=== PATIENT | female | born 1975 | race Caucasian/White ===

== ENCOUNTER 2017-02-11 12:00 | Inpatient (IN) | payer BC ==
[2017-02-11] MEDS ORDERED: SODIUM CHLORIDE 1,000 ML IV STA (12:38)
[2017-02-11] MEDS ORDERED: ACETAMINOPHEN 1000 MG/100 ML VIAL (NON FORMULARY) IVPB ONE (12:39)
[2017-02-11] MEDS ORDERED: ONDANSETRON 4 MG/2 ML VIAL IVPUSH ONE (13:09)
[2017-02-11] MEDS ORDERED: ONDANSETRON 4 MG/2 ML VIAL ONE (13:11)
--- NOTE | 2017-02-11 13:14 | PDOC ---
History of Present Illness <Leatha Hinojosa - Last Filed: 02/11/17 14:17> - General History Source: Patient Exam Limitations: No Limitations - History of Present Illness Travel History: No Initial Comments: 02/11/17 13:05 41-year-old female presents the ED with complaints of fever, chills, flank pain , and weakness with nausea for the past 3 days worsening in severity. Patient states was recently treated with Bactrim secondary to UTI by Dr. Jordan Gonzalez although she is followed by Dr. Cerrato for urology due to recurrent kidney infection and kidney stones. Patient denies chest pain, shortness of breath, abdominal distention, diarrhea, or rash. Timing/Duration: reports: getting worse Quality: reports: moderate, sharpness Abdominal Pain Onset Location: reports: flank (left) Pain Radiation: reports: LLQ, back Activities at Onset: reports: none Aggravating Factors: improves with: None Alleviating Factors: improves with: None <Rosaura Lester - Last Filed: 02/11/17 18:30> - General Chief Complaint: Pain, Acute Stated Complaint: PAIN Time Seen by Provider: 02/11/17 12:37 Past History <Leatha Hinojosa - Last Filed: 02/11/17 14:17> - Travel Traveled outside of the country in the last 30 days: No Close contact w/someone who was outside of country & ill: No - Past Medical History Cardiac Disorders: Yes (MVP) Diabetes: No (HYPOGLYCEMIA) GI Disorders: Yes (Colitis) Disorders: Yes (kidney stones multiple times.) Kidney Stones: Yes Suicide Attempt (Hx): No Thyroid Disease: (hypo) - Surgical History Abdominal Surgery: Yes (oopharectomy,kidney stones lipthotripsy) Appendectomy: Yes - Reproductive History Polycystic Ovaries: Yes Therapeutic (s) & number: No - Psycho/Social/Smoking Cessation Hx Anxiety: No Suicidal Ideation: No Smoking Status: Yes Smoking History: Former smoker Have you smoked in the past 12 months: Yes Number of Cigarettes Smoked Daily: 20 Information on smoking cessation initiated: Yes 'Breaking Loose' booklet given: 09/15/13 Hx Alcohol Use: No Drug/Substance Use Hx: No Substance Use Type: None Hx Substance Use Treatment: Yes Patient Lives Alone: No Lives with/in: spouse/SO <Rosaura Lester - Last Filed: 02/11/17 18:30> - Past Medical History Allergies/Adverse Reactions: Allergies Allergy/AdvReac Type Severity Reaction Status Date / Time levofloxacin [From Levaquin] Allergy Severe Hives Verified 02/11/17 12:18 ceftriaxone sodium Allergy Intermediate Difficulty Verified 02/11/17 12:18 [From Rocephin] Breathing ciprofloxacin [From Cipro] Allergy Difficulty Verified 02/11/17 12:18 Breathing ciprofloxacin HCl Allergy Difficulty Verified 02/11/17 12:18 [From Cipro] Breathing Penicillins Allergy Difficulty Verified 02/11/17 12:18 Breathing nitrofurantoin AdvReac Severe Hives Verified 02/11/17 12:18 [From Macrobid] nitrofurantoin AdvReac Severe Hives Verified 02/11/17 12:18 macrocrystalline [From Macrobid] Home Medications: Ambulatory Orders NK [No Known Home Medication] 02/11/17 Review of Systems - Review of Systems Able to Perform ROS?: No Is the patient limited Indonesian proficient: No Constitutional: Yes: Fever, Weakness HEENTM: No: Symptoms Reported Respiratory: No: Symptoms reported Cardiac (ROS): No: Symptoms Reported ABD/GI: Yes: Nausea : Yes: Flank Pain, Hematuria ( 2 weeks) Hematologic/Lymphatic: No: Symptoms Reported <Rosaura Lester - Last Filed: 02/11/17 18:30> *Physical Exam - Vital Signs Last Vital Signs Temp Pulse Resp BP Pulse Ox 99.8 F H 92 H 20 108/82 96 02/11/17 12:19 02/11/17 12:19 02/11/17 12:19 02/11/17 12:19 02/11/17 12:19 <Leatha Hinojosa - Last Filed: 02/11/17 14:17> - Vital Signs Last Vital Signs Temp Pulse Resp BP Pulse Ox 99.8 F H 92 H 20 108/82 96 02/11/17 12:19 02/11/17 12:19 02/11/17 12:19 02/11/17 12:19 02/11/17 12:19 - Physical Exam General Appearance: Yes: Nourished, Appropriately Dressed. No: Apparent Distress HEENT: positive: EOMI, ADORE, Pharynx Normal. negative: Pale Conjunctivae Neck: positive: Supple Respiratory/Chest: positive: Lungs Clear, Normal Breath Sounds. negative: Respiratory Distress, Accessory Muscle Use Cardiovascular: positive: Regular Rhythm, Regular Rate. negative: Murmur Gastrointestinal/Abdominal: positive: Soft, Tenderness (left flank /left lower quadrant) Musculoskeletal: positive: CVA Tenderness (L) Extremity: positive: Normal Capillary Refill Integumentary: positive: Normal Color, Warm, Moist Neurologic: positive: Motor Strength 5/5 (ambulatory) <Rosaura Lester - Last Filed: 02/11/17 18:30> Procedures - Bedside Ultrasound Other: renal us, see mdm for report <Leatha Hinojosa - Last Filed: 02/11/17 14:17> ED Treatment Course - LABORATORY CBC & Chemistry Diagram: 02/11/17 12:41 02/11/17 12:41 - ADDITIONAL ORDERS Additional order review: Laboratory Results 02/11/17 02/11/17 02/11/17 13:30 12:41 12:41 Sodium 141 Potassium 4.6 Chloride 106 Carbon Dioxide 27 Anion Gap 8 BUN 6 L Creatinine 0.6 Creat Clearance w eGFR > 60 Random Glucose 91 Lactic Acid 1.0 Calcium 8.6 Total Bilirubin 0.7 D AST 13 L ALT 12 D Alkaline Phosphatase 53 Total Protein 6.4 Albumin 3.7 Urine Color Yellow Urine Appearance Slcloudy Urine pH 6.0 Urine Protein Negative Urine Glucose (UA) Negative Urine Ketones Negative Urine Blood 2+ H Urine Nitrite Positive Urine Bilirubin Negative Urine Urobilinogen Negative Ur Leukocyte Esterase Negative Urine RBC 2 Urine WBC 4 Ur Epithelial Cells Few Urine Bacteria Many Urine Mucus Rare 02/11/17 12:41 RBC 4.01 MCV 94.0 MCHC 33.4 RDW 12.6 MPV 8.3 Neutrophils % 84.7 H Lymphocytes % 8.9 D Monocytes % 4.9 Eosinophils % 1.2 Basophils % 0.3 - Medications Given in the ED: ED Medications Discontinued Medications Generic Name Dose Route Start Last Admin Trade Name Daljitq PRN Reason Stop Dose Admin Acetaminophen 1,000 mg 02/11/17 12:39 02/11/17 13:35 Ofirmev Injection - IVPB 02/11/17 12:40 1,000 mg ONCE ONE Administration Sodium Chloride 1,000 mls @ 1,000 mls/hr 02/11/17 12:38 02/11/17 13:12 Normal Saline - IV 02/11/17 13:37 1,000 mls/hr ASDIR STA Administration Ondansetron HCl 4 mg 02/11/17 13:09 02/11/17 13:12 Zofran Injection IVPUSH 02/11/17 13:10 4 mg ONCE ONE Administration <Leatha Hinojosa - Last Filed: 02/11/17 14:17> - LABORATORY CBC & Chemistry Diagram: 02/11/17 12:41 02/11/17 12:41 - RADIOLOGY Radiology Studies Ordered: Category Date Time Status KIDNEY / RENAL US [US] Stat Ultrasound 02/11/17 12:39 Ordered <Rosaura Lester - Last Filed: 02/11/17 18:30> Medical Decision Making - Medical Decision Making 02/11/17 14:17 focused ED ultrasound renal, indication left flank pain r/o hydronephrosis bilateral kidneys scanned in two planes. right kidney measured 9.6 x 4.2 cm, no hydronephrosis left kidney measured 10.9 x 6cm, no hydronephrosis bladder volume 280 ml. impression: normal renal ultrasound cirilli <Leatha Hinojosa - Last Filed: 02/11/17 14:17> - Medical Decision Making 02/11/17 13:16 Patient here with complaints of fever, weakness, flank pain recent kidney infection, and nausea. Patient with recurrent kidney infection along with renal colic followed by Dr. Cerrato. Patient on exam had left CVA tenderness left flank pain and mild left lower quadrant pain. Patient ordered for septic workup Zofran, IV Tylenol, and renal kidney ultrasound. 02/11/17 17:21 Laboratory Tests 02/11/17 02/11/17 02/11/17 12:41 12:41 12:41 WBC 15.4 H D Hgb 12.6 Hct 37.7 Sodium 141 Potassium 4.6 Chloride 106 Carbon Dioxide 27 Anion Gap 8 BUN 6 L Creatinine 0.6 Creat Clearance w eGFR > 60 Random Glucose 91 Lactic Acid 1.0 AST 13 L ALT 12 D Urine Blood Urine Nitrite Ur Leukocyte Esterase Urine WBC 02/11/17 13:30 WBC Hgb Hct Sodium Potassium Chloride Carbon Dioxide Anion Gap BUN Creatinine Creat Clearance w eGFR Random Glucose Lactic Acid AST ALT Urine Blood 2+ H Urine Nitrite Positive Ur Leukocyte Esterase Negative Urine WBC 4 02/11/17 17:22 ultrasound shows unremarkable kidneys. Patient with noted positive nitrates in urine. Patient had CVA tenderness on exam. Patient will be ordered for maintenance IV fluids, and IV Bactrim, and repeat oral temperature was 99.3 although patient feels chills with generalized weakness. Patient is refusing rectal temperature. 02/11/17 17:[address] Jordan Gonzalez and states admitted to [facility]. Is also recommending consultations Dr. Gomez infectious disease specialist. Consultation was also placed for patient's urologist Dr. Ector Cerrato 02/11/17 18:30 Dr. Ector Cerrato aware of consultation and agrees with IV Bactrim. He is not recommending a CAT scan at this time. <Rosaura Lester - Last Filed: 02/11/17 18:30> *DC/Admit/Observation/Transfer <Leatha Hinojosa - Last Filed: 02/11/17 14:17> - Discharge Dispostion Admit: Yes <Rosaura Lester - Last Filed: 02/11/17 18:30> Diagnosis at time of Disposition: Pyelonephritis Sepsis Qualifiers: Sepsis type: sepsis due to unspecified organism Qualified Code(s): A41.9 - Sepsis, unspecified organism - Referrals Referrals: Jordan Cerrato MD [Primary Care Provider] -
[2017-02-11 13:29] LABS: BASOPHIL 0.3 % (0-2.0); EOSINOPHIL 1.2 % (0-4.5); MCH 31.4 pg (25.7-33.7); MCHC 33.4 g/dl (32.0-36.0); MEAN PLT VOLUME 8.3 fl (7.5-11.1); NEUTROPHILS 84.7 % (42.8-82.8); PLATELET COUNT 300 K/MM3 (134-434); RDW 12.6 % (11.6-15.6); WHITE BLOOD COUNT 15.4 K/mm3 (4.0-10.0)
[2017-02-11] MEDS ORDERED: ACETAMINOPHEN INJECTION 100 ML IVPB ONE (13:31)
[2017-02-11 13:48] LABS: ALBUMIN 3.7 g/dl (3.4-5.0); ANION GAP 8 (8-16); BILIRUBIN,TOTAL 0.7 mg/dL (0.2-1.0); CALCIUM 8.6 mg/dL (8.5-10.1); CO2 27 mmol/L (21-32); CREATININE 0.6 mg/dL (0.55-1.02); GLUCOSE,RANDOM 91 mg/dL (74-106); SGOT/AST 13 U/L (15-37); SGPT/ALT 12 U/L (12-78); TOT PROT 6.4 g/dl (6.4-8.2)
[2017-02-11 13:49] LABS: ALK PHOS 53 U/L (45-117)
[2017-02-11 13:55] LABS: URINE APPEARANCE SLCLOUDY; URINE BILIRUBIN NEGATIVE (NEGATIVE); URINE BLOOD 2+ (NEGATIVE); URINE COLOR YELLOW; URINE GLUCOSE (UA) NEGATIVE (NEGATIVE); URINE KETONE NEGATIVE (NEGATIVE); URINE LEUK ESTERASE NEGATIVE (NEGATIVE); URINE NITRITE POSITIVE (NEGATIVE); URINE PROTEIN NEGATIVE (NEGATIVE); URINE UROBILINOGEN NEGATIVE mg/dL (0.2-1.0)
[2017-02-11 14:00] LABS: URINE BACTERIA MANY /hpf (NONE SEEN); URINE MUCUS RARE; URINE RBC 2 /hpf (0-3); URINE WBC 4 /hpf (3-5)
--- NOTE | 2017-02-11 17:16 | EKG ---
Test Reason : Blood Pressure : / mmHG Vent. Rate : 090 BPM Atrial Rate : 090 BPM P-R Int : 180 ms QRS Dur : 066 ms QT Int : 370 ms P-R-T Axes : 044 016 015 degrees QTc Int : 452 ms NORMAL SINUS RHYTHM NONSPECIFIC T WAVE ABNORMALITY ABNORMAL ECG WHEN COMPARED WITH ECG OF 21-FEB-2015 15:47, T WAVE VARIATION Confirmed by ANGELINE SIDDIQI MD ([id number]) on 02/11/2017 5:16:14 PM Referred By: Confirmed By:ANGELINE SIDDIQI MD
[2017-02-11] MEDS ORDERED: SULFAMETHOXAZOLE 80 MG/TRIMETHOPRIM 16 MG/ML VIAL IVPB ONE (17:31)
[2017-02-11] MEDS ORDERED: IBUPROFEN 600 MG TABLET (FP) PO ONE ×2 (17:44→17:55)
[2017-02-11] MEDS: SODIUM CHLORIDE 1,000 ML IV SCH (18:03)
[2017-02-11] MEDS ORDERED: WATER IVPB ONE (19:00)
[2017-02-11] MEDS ORDERED: DEXTROSE 5% IVPB ONE (19:00)
[2017-02-11] MEDS ORDERED: SULFAMETHOXAZOLE IVPB ONE (19:00)
[2017-02-11] MEDS ORDERED: TRIMETHOPRIM IVPB ONE (19:00)
[2017-02-11] MEDS ORDERED: SODIUM CHLORIDE 1,000 ML IV SCH (19:15)
[2017-02-11] MEDS: ONDANSETRON 4 MG/2 ML VIAL IVPB PRN (20:59)
[2017-02-12 01:20] VITALS: BMI 22.1
[2017-02-12] MEDS: ONDANSETRON 4 MG/2 ML VIAL IVPB PRN ×2 (06:47→13:15)
[2017-02-12 07:51] LABS: BASOPHIL 0.1 % (0-2.0); EOSINOPHIL 2.8 % (0-4.5); MCH 31.2 pg (25.7-33.7); MCHC 33.2 g/dl (32.0-36.0); MEAN CELL VOLUME 93.8 fl (80-96); MEAN PLT VOLUME 8.3 fl (7.5-11.1); NEUTROPHILS 76.8 % (42.8-82.8); PLATELET COUNT 247 K/MM3 (134-434); RDW 12.5 % (11.6-15.6); WHITE BLOOD COUNT 13.6 K/mm3 (4.0-10.0)
[2017-02-12 08:14] LABS: ALBUMIN 3.3 g/dl (3.4-5.0); ANION GAP 8 (8-16); CO2 25 mmol/L (21-32); GLUCOSE,RANDOM 88 mg/dL (74-106); SGOT/AST 9 U/L (15-37)
[2017-02-12 08:17] LABS: ALK PHOS 49 U/L (45-117); BILIRUBIN,TOTAL 0.5 mg/dL (0.2-1.0); CALCIUM 8.6 mg/dL (8.5-10.1); CREATININE 0.5 mg/dL (0.55-1.02); SGPT/ALT 11 U/L (12-78); TOT PROT 6.1 g/dl (6.4-8.2)
[2017-02-12] MEDS: ASPIRIN 81 MG CHEWABLE TABLETS PO SCH (10:00)
[2017-02-12] MEDS ORDERED: SULFAMETHOXAZOLE 80 MG/TRIMETHOPRIM 16 MG/ML VIAL IVPB SCH ×2 (10:00)
[2017-02-12] MEDS ORDERED: ASPIRIN COATED 81 MG TABLET.EC PO SCH (10:00)
[2017-02-12] MEDS ORDERED: SULFAMETHOXAZOLE/TRIMETHOPRIM 160 MG in DEXTROSE 5%-WATER - 250 ML IVPB SCH (10:00)
[2017-02-12] MEDS: PANTOPRAZOLE 20 MG TABLET (FP) PO SCH (10:00)
--- NOTE | 2017-02-12 10:18 | HP ---
Admitting History and Physical - Admission Chief Complaint: cvat. fevern/v dysuria 4 days History Source: Patient Limitations to Obtaining History: No Limitations - Past Medical History Renal/: Yes: UTI ...: No - Past Surgical History Past Surgical History: Yes: Appendectomy, Hysterectomy (endometriosis sx) - Smoking History Smoking history: Current every day smoker Have you smoked in the past 12 months: Yes Aproximately how many cigarettes per day: 20 - Alcohol/Substance Use Hx Alcohol Use: No History of Substance Use: reports: Tranquilizers - Social History Usual Living Arrangement: Yes: With Spouse ADL: Independent History of Recent Travel: No Home Medications - Allergies Allergies/Adverse Reactions: Allergies Allergy/AdvReac Type Severity Reaction Status Date / Time levofloxacin [From Levaquin] Allergy Severe Hives Verified 02/11/17 12:18 ceftriaxone sodium Allergy Intermediate Difficulty Verified 02/11/17 12:18 [From Rocephin] Breathing ciprofloxacin [From Cipro] Allergy Difficulty Verified 02/11/17 12:18 Breathing ciprofloxacin HCl Allergy Difficulty Verified 02/11/17 12:18 [From Cipro] Breathing Penicillins Allergy Difficulty Verified 02/11/17 12:18 Breathing nitrofurantoin AdvReac Severe Hives Verified 02/11/17 12:18 [From Macrobid] nitrofurantoin AdvReac Severe Hives Verified 02/11/17 12:18 macrocrystalline [From Macrobid] - Home Medications Home Medications: Ambulatory Orders NK [No Known Home Medication] 02/11/17 Family Disease History - Family Disease History Family History: Unremarkable Physical Examination Vital Signs: Vital Signs Temperature 98.8 F 02/12/17 10:00 Pulse Rate 71 02/12/17 10:00 Respiratory Rate 18 02/12/17 10:00 Blood Pressure 115/68 02/12/17 10:00 O2 Sat by Pulse Oximetry (%) 96 02/11/17 21:00 Labs: CBC, BMP 02/12/17 06:00 02/12/17 06:00 Assessment/Plan why pt w utis no stones?? get nuclear vcug gu f/u cont atx as is id f/u
[2017-02-12] MEDS: ACETAMINOPHEN 325 MG TABLET (FP) PO PRN (12:37)
--- NOTE | 2017-02-12 16:27 | PN ---
Progress Note (short form) - Note Progress Note: ID Consult dictated UTI, Probable pyelonephritis Multiple antibiotic allergies Pending c/s empiric gentamicin
[2017-02-12] MEDS: SODIUM CHLORIDE 1,000 ML IV SCH (18:02)
[2017-02-12] MEDS: GENTAMICIN INJECTION 250 MG in SODIUM CHLORIDE 250 ML IVPB SCH (18:45)
[2017-02-12] MEDS ORDERED: HYDROmorphone HCL 2 MG TABLET PO ONE (22:00)
[2017-02-13 07:38] LABS: BASOPHIL 0.5 % (0-2.0); EOSINOPHIL 5.3 % (0-4.5); MCH 31.2 pg (25.7-33.7); MCHC 33.3 g/dl (32.0-36.0); MEAN CELL VOLUME 93.7 fl (80-96); MEAN PLT VOLUME 8.4 fl (7.5-11.1); NEUTROPHILS 63.1 % (42.8-82.8); PLATELET COUNT 254 K/MM3 (134-434); RDW 12.4 % (11.6-15.6); WHITE BLOOD COUNT 8.6 K/mm3 (4.0-10.0)
[2017-02-13 08:13] LABS: ANION GAP 8 (8-16); CALCIUM 8.8 mg/dL (8.5-10.1); CO2 27 mmol/L (21-32); CREATININE 0.6 mg/dL (0.55-1.02); GLUCOSE,RANDOM 93 mg/dL (74-106)
[2017-02-13] MEDS: ONDANSETRON 4 MG/2 ML VIAL IVPB PRN (08:59)
[2017-02-13] MEDS: ASPIRIN 81 MG CHEWABLE TABLETS PO SCH (09:05)
[2017-02-13] MEDS: PANTOPRAZOLE 20 MG TABLET (FP) PO SCH (09:06)
--- NOTE | 2017-02-13 13:00 | PN ---
Progress Note, Physician History of Present Illness: Reports less back pain No c/o dysuria/ hematuria + Low grade fever No adverse rxn to gentamicin BC prelim (-) Urine c/s E coli pansensitive - Current Medication List Current Medications: Active Medications Acetaminophen (Tylenol -) 650 mg PO Q4H PRN PRN Reason: FEVER OR PAIN Last Admin: 02/12/17 12:37 Dose: 650 mg Aspirin (Asa -) 81 mg PO DAILY [facility] Last Admin: 02/13/17 09:05 Dose: 81 mg Sodium Chloride (Normal Saline -) 1,000 mls @ 75 mls/hr IV ASDIR [facility] Last Admin: 02/12/17 18:02 Dose: Not Given Gentamicin Sulfate 250 mg/ (Sodium Chloride) 256.25 mls @ 256.25 mls/hr IVPB DAILY@1900 [facility] Last Admin: 02/12/17 18:45 Dose: 256.25 mls/hr Ondansetron HCl (Zofran Injection) 4 mg IVPB Q4H PRN PRN Reason: NAUSEA AND/OR VOMITING Last Admin: 02/13/17 08:59 Dose: 4 mg Pantoprazole Sodium (Protonix -) 20 mg PO DAILY [facility] Last Admin: 02/13/17 09:06 Dose: 20 mg - Objective Vital Signs: Vital Signs Temperature 98.2 F 02/13/17 10:00 Pulse Rate 68 02/13/17 10:00 Respiratory Rate 18 02/13/17 10:00 Blood Pressure 97/60 02/13/17 10:00 O2 Sat by Pulse Oximetry (%) 98 02/12/17 21:00 Constitutional: Yes: No Distress Eyes: Yes: Conjunctiva Clear Cardiovascular: Yes: Regular Rate and Rhythm, S1, S2 Respiratory: Yes: CTA Bilaterally Gastrointestinal: Yes: Normal Bowel Sounds, Soft Genitourinary: Yes: CVA Tenderness - Left, CVA Tenderness - Right Edema: No Labs: CBC, BMP 02/13/17 06:38 02/13/17 06:38 Assessment/Plan UTI/ pyelonephritis Pansensitive E coli Multiple antibiotic allergies Await Continue gentamicin
--- NOTE | 2017-02-13 13:48 | PN ---
Progress Note, Physician Chief Complaint: feels better vss - Current Medication List Current Medications: Active Medications Acetaminophen (Tylenol -) 650 mg PO Q4H PRN PRN Reason: FEVER OR PAIN Last Admin: 02/12/17 12:37 Dose: 650 mg Aspirin (Asa -) 81 mg PO DAILY [facility] Last Admin: 02/13/17 09:05 Dose: 81 mg Sodium Chloride (Normal Saline -) 1,000 mls @ 75 mls/hr IV ASDIR [facility] Last Admin: 02/12/17 18:02 Dose: Not Given Gentamicin Sulfate 250 mg/ (Sodium Chloride) 256.25 mls @ 256.25 mls/hr IVPB DAILY@1900 [facility] Last Admin: 02/12/17 18:45 Dose: 256.25 mls/hr Ondansetron HCl (Zofran Injection) 4 mg IVPB Q4H PRN PRN Reason: NAUSEA AND/OR VOMITING Last Admin: 02/13/17 08:59 Dose: 4 mg Pantoprazole Sodium (Protonix -) 20 mg PO DAILY [facility] Last Admin: 02/13/17 09:06 Dose: 20 mg - Objective Vital Signs: Vital Signs Temperature 98.2 F 02/13/17 10:00 Pulse Rate 68 02/13/17 10:00 Respiratory Rate 18 02/13/17 10:00 Blood Pressure 97/60 02/13/17 10:00 O2 Sat by Pulse Oximetry (%) 98 02/12/17 21:00 Labs: CBC, BMP 02/13/17 06:38 02/13/17 06:38 Assessment/Plan agree w gentamycin iv [facility] will do outpt
[2017-02-13] MEDS: ACETAMINOPHEN 325 MG TABLET (FP) PO PRN (14:40)
[2017-02-13] MEDS: SODIUM CHLORIDE 1,000 ML IV SCH ×2 (14:42→18:26)
[2017-02-13] MEDS: GENTAMICIN INJECTION 250 MG in SODIUM CHLORIDE 250 ML IVPB SCH (18:26)
[2017-02-14] MEDS: SODIUM CHLORIDE 1,000 ML IV SCH (05:57)
[2017-02-14 07:39] LABS: BASOPHIL 0.7 % (0-2.0); EOSINOPHIL 7.3 % (0-4.5); MCH 31.3 pg (25.7-33.7); MCHC 33.5 g/dl (32.0-36.0); MEAN CELL VOLUME 93.7 fl (80-96); MEAN PLT VOLUME 8.3 fl (7.5-11.1); NEUTROPHILS 54.5 % (42.8-82.8); PLATELET COUNT 277 K/MM3 (134-434); RDW 12.5 % (11.6-15.6); WHITE BLOOD COUNT 7.2 K/mm3 (4.0-10.0)
[2017-02-14] MEDS: ACETAMINOPHEN 325 MG TABLET (FP) PO PRN (07:46)
[2017-02-14 08:03] VITALS: PULSE 62
[2017-02-14 08:03] LABS: ANION GAP 7 (8-16); CALCIUM 9.1 mg/dL (8.5-10.1); CO2 29 mmol/L (21-32); CREATININE 0.5 mg/dL (0.55-1.02); GLUCOSE,RANDOM 89 mg/dL (74-106)
[2017-02-14] MEDS: ASPIRIN 81 MG CHEWABLE TABLETS PO SCH (09:21)
[2017-02-14] MEDS: PANTOPRAZOLE 20 MG TABLET (FP) PO SCH (09:22)
--- NOTE | 2017-02-14 10:14 | PN ---
Progress Note, Physician - Current Medication List Current Medications: Active Medications Acetaminophen (Tylenol -) 650 mg PO Q4H PRN PRN Reason: FEVER OR PAIN Last Admin: 02/14/17 07:46 Dose: 650 mg Aspirin (Asa -) 81 mg PO DAILY [facility] Last Admin: 02/14/17 09:21 Dose: 81 mg Sodium Chloride (Normal Saline -) 1,000 mls @ 75 mls/hr IV ASDIR [facility] Last Admin: 02/14/17 05:57 Dose: 75 mls/hr Gentamicin Sulfate 250 mg/ (Sodium Chloride) 256.25 mls @ 256.25 mls/hr IVPB DAILY@1900 [facility] Last Admin: 02/13/17 18:26 Dose: 256.25 mls/hr Ondansetron HCl (Zofran Injection) 4 mg IVPB Q4H PRN PRN Reason: NAUSEA AND/OR VOMITING Last Admin: 02/13/17 08:59 Dose: 4 mg Pantoprazole Sodium (Protonix -) 20 mg PO DAILY [facility] Last Admin: 02/14/17 09:22 Dose: 20 mg - Objective Vital Signs: Vital Signs Temperature 98.6 F 02/14/17 06:00 Pulse Rate 62 02/14/17 06:00 Respiratory Rate 18 02/14/17 06:00 Blood Pressure 109/61 02/14/17 06:00 O2 Sat by Pulse Oximetry (%) 98 02/13/17 09:00 Labs: CBC, BMP 02/14/17 06:00 02/14/17 06:00 Assessment/Plan less pain vss cont atx ? days f/u id to po atx when to d/c pt
--- NOTE | 2017-02-14 10:39 | PN ---
Progress Note (short form) - Note Progress Note: chart reviwed discussed with pmd will do cysto as out patient as pt has recurrent uti and upper tract dysfunction must r/o vesico ureteral reflux wiill do cyst and vcug as outpt pt to f/u 02/21
[2017-02-14] MEDS ORDERED: KETOROLAC TROMETHAMINE 60 MG/2 ML VIAL IM ONE (12:30)
--- NOTE | 2017-02-14 12:55 | PN ---
Progress Note, Physician History of Present Illness: C/O mild L flank pain and pain at the end of micuration No hematuria No fever/ chills Afebrile WBC WNL BC (-) Urine c/s E coli pansensitive - Current Medication List Current Medications: Active Medications Acetaminophen (Tylenol -) 650 mg PO Q4H PRN PRN Reason: FEVER OR PAIN Last Admin: 02/14/17 07:46 Dose: 650 mg Aspirin (Asa -) 81 mg PO DAILY [facility] Last Admin: 02/14/17 09:21 Dose: 81 mg Sodium Chloride (Normal Saline -) 1,000 mls @ 75 mls/hr IV ASDIR [facility] Last Admin: 02/14/17 05:57 Dose: 75 mls/hr Gentamicin Sulfate 250 mg/ (Sodium Chloride) 256.25 mls @ 256.25 mls/hr IVPB DAILY@1900 [facility] Last Admin: 02/13/17 18:26 Dose: 256.25 mls/hr Ondansetron HCl (Zofran Injection) 4 mg IVPB Q4H PRN PRN Reason: NAUSEA AND/OR VOMITING Last Admin: 02/13/17 08:59 Dose: 4 mg Pantoprazole Sodium (Protonix -) 20 mg PO DAILY [facility] Last Admin: 02/14/17 09:22 Dose: 20 mg - Objective Vital Signs: Vital Signs Temperature 98.6 F 02/14/17 06:00 Pulse Rate 62 02/14/17 06:00 Respiratory Rate 18 02/14/17 06:00 Blood Pressure 109/61 02/14/17 06:00 O2 Sat by Pulse Oximetry (%) 98 02/13/17 09:00 Constitutional: Yes: No Distress Eyes: Yes: Conjunctiva Clear Cardiovascular: Yes: Regular Rate and Rhythm, S1, S2 Respiratory: Yes: CTA Bilaterally Gastrointestinal: Yes: Normal Bowel Sounds, Soft. No: Tenderness Genitourinary: Yes: CVA Tenderness - Left Edema: No Labs: CBC, BMP 02/14/17 06:00 02/14/17 06:00 Assessment/Plan UTI/ pyelonephritis Pansensitive E coli Multiple antibiotic allergies Substitute po Bactrim DS bid x 7d Outpatient follow up
--- NOTE | 2017-02-14 13:31 | CONS ---
DATE OF CONSULTATION: 02/12/2017 CHIEF COMPLAINT: The patient is a 41-year-old female with a history of nephrolithiasis, history of recurrent urinary tract infections evaluated for recurrent UTI. HISTORY: The patient states she was doing well until last month. In mid-December, she travelled to [place]. While in [place], she developed an episode of gross hematuria. She also experienced some dysuria. She did not seek medical attention until she returned to [place]. Upon return, she was evaluated and was diagnosed with a urinary tract infection. She was given a prescription for Bactrim. Despite 10 days of Bactrim, she continued to have some dysuria and bilateral flank pain. She also complained of generalized weakness, nausea, subjective fever and chills. She was admitted to the hospital for further evaluation. Her hospital course was complicated by low-grade fever and elevated white blood cell count. At the present time, she complains of bilateral flank pain and low back pain, dysuria at the end of micturition. She denies any recurrent gross hematuria. PAST MEDICAL HISTORY: Positive for recurrent nephrolithiasis and urinary tract infections. She has had no recent hospital admissions. Past medical history also positive for mitral valve prolapse. PAST SURGICAL HISTORY: Status post lithotripsy, appendicitis, hysterectomy. ALLERGIES: PENICILLIN, CEFTRIAXONE, LEVAQUIN, NITROFURANTOIN. With respect to PENICILLIN, she reports difficulty breathing. She also has a similar reaction to CIPROFLOXACIN. She develops hives with NITROFURANTOIN and LEVAQUIN. MEDICATIONS: Include acetaminophen, aspirin, Protonix. SOCIAL HISTORY: Lives at home with significant other. Positive history of tobacco. SYSTEMS REVIEW: Neurologic: No loss of consciousness, seizure activity, focal weakness. Cardiac: Negative chest pain or palpitations. Respiratory: Negative for cough or sputum production. Gastrointestinal: Negative vomiting or diarrhea. Genitourinary: As per HPI. LABORATORY DATA: White count 15.4, creatinine 0.6. Urinalysis 4 white cells. Cultures pending. PHYSICAL EXAMINATION: General: She is awake and alert. She is not acutely toxic appearing. Vital Signs: T-max 99.8. HEENT: Sclerae anicteric. Heart: Sounds S1, S2. Lungs: Clear. Abdomen: Soft. There is mild suprapubic tenderness and mild bilateral flank tenderness. Extremities: Negative for edema. IMPRESSION: 1. Recurrent urinary tract infection, probable pyelonephritis. 2. Multiple antibiotic allergies. 3. Fever and leukocytosis. PLAN: Await blood and urine culture results. Empiric antibiotic coverage in this patient with major PENICILLIN and CEPHALOSPORIN allergies as well as FLUOROQUINOLONE allergy with gentamicin 4 mg/kg IV piggyback q.24 hours. Await culture results and Urology evaluation. We will follow. ANDRIY POLANCO M.D. [id number]
[2017-02-14] MEDS ORDERED: GENTAMICIN INJECTION 250 MG in SODIUM CHLORIDE 250 ML IVPB SCH (14:00)
--- NOTE | 2017-02-14 15:43 | PN ---
Progress Note, Physician - Current Medication List Current Medications: Active Medications Acetaminophen (Tylenol -) 650 mg PO Q4H PRN PRN Reason: FEVER OR PAIN Last Admin: 02/14/17 07:46 Dose: 650 mg Aspirin (Asa -) 81 mg PO DAILY [facility] Last Admin: 02/14/17 09:21 Dose: 81 mg Sodium Chloride (Normal Saline -) 1,000 mls @ 75 mls/hr IV ASDIR [facility] Last Admin: 02/14/17 05:57 Dose: 75 mls/hr Gentamicin Sulfate 250 mg/ (Sodium Chloride) 256.25 mls @ 256.25 mls/hr IVPB DAILY@1400 [facility] Last Admin: 02/14/17 14:52 Dose: 256.25 mls/hr Ondansetron HCl (Zofran Injection) 4 mg IVPB Q4H PRN PRN Reason: NAUSEA AND/OR VOMITING Last Admin: 02/13/17 08:59 Dose: 4 mg Pantoprazole Sodium (Protonix -) 20 mg PO DAILY [facility] Last Admin: 02/14/17 09:22 Dose: 20 mg - Objective Vital Signs: Vital Signs Temperature 98.6 F 02/14/17 06:00 Pulse Rate 62 02/14/17 06:00 Respiratory Rate 18 02/14/17 06:00 Blood Pressure 109/61 02/14/17 06:00 O2 Sat by Pulse Oximetry (%) 98 02/13/17 09:00 Labs: CBC, BMP 02/14/17 06:00 02/14/17 06:00 Assessment/Plan d/c pt now po batrim bid x 10 days f/u w vt 1200 saturday
[2017-02-14 15:45] VITALS: BP 113/61; TEMP 98.2
== END 2017-02-14 16:43 | disposition home or self-care (01) | DRG 690 ==
LOC: JER 12:00 → JERBED 17:55 → J5S 20:05
PROVIDERS: ADMIT Family Medicine; ATTEND Family Medicine
DX: N39.0 Urinary tract infection, site not specified (principal); I34.1 Nonrheumatic mitral (valve) prolapse; F17.210 Nicotine dependence, cigarettes, uncomplicated; E16.1 Other hypoglycemia; N20.0 Calculus of kidney; R10.32 Left lower quadrant pain; E03.9 Hypothyroidism, unspecified; K52.89 Other specified noninfective gastroenteritis and colitis; B96.29 Other Escherichia coli [E. coli] as the cause of diseases classified elsewhere; Z88.0 Allergy status to penicillin; Z90.722 Acquired absence of ovaries, bilateral; Z88.8 Allergy status to other drugs, medicaments and biological substances
CPT/HCPCS: 36415; 76775-TC; 80048; 80053; 81003; 81015; 83605; 85025; 87040; 87086; 87186; 93005; 93010; 99283-25

== ENCOUNTER 2017-03-01 09:08 | Day surgery (SDC) | payer BC ==
[2017-02-28 13:12] VITALS: BMI 22.2
[2017-03-01] MEDS ORDERED: DOXYCYCLINE HYCLATE 100 MG CAPSULE PO ONE (09:32)
--- NOTE | 2017-03-01 09:38 | PN ---
Progress Note (short form) - Note Progress Note: post op resume all preop meds inc dorothy oob vitals q 4 doxycycline 100 bid x 10 d as pt has multiple allergies pt to take percocet 5/325 prn q 4 f/u in office wed 10 am
--- NOTE | 2017-03-01 09:39 | OP ---
Operative Note - Note: Pre-Operative Diagnosis: rec uti/renc colic Operation: cystogram, vcu, lull jj stent Post-Operative Diagnosis: Same as Pre-op Surgeon: Ector Cerrato Drains & Tubes with Location: jj stent Operative Report Dictated: Yes
[2017-03-01] MEDS ORDERED: oxyCODONE HCL 5 MG TABLET PO PRN ×2 (11:21→13:15)
[2017-03-01] MEDS ORDERED: ACETAMINOPHEN 325 MG TABLET (FP) PO PRN (11:21)
[2017-03-01] MEDS ORDERED: PROPOFOL 20 ML ONE ×2 (12:34)
[2017-03-01] MEDS ORDERED: DEXAMETHASONE SOD PHOSPHATE 4 MG/1 ML VIAL ONE (12:34)
[2017-03-01] MEDS ORDERED: MIDAZOLAM HCL 2 MG/2 ML SINGLE DOSE VIAL ONE ×3 (12:34→12:58)
[2017-03-01] MEDS ORDERED: GENTAMICIN SO4 80 MG/2 ML VIAL ONE (12:34)
[2017-03-01] MEDS ORDERED: KETOROLAC TROMETHAMINE 30 MG/1 ML VIAL ONE (12:34)
[2017-03-01] MEDS ORDERED: GENTAMICIN SO4 80 MG/2 ML VIAL IVPB ONE (12:38)
[2017-03-01] MEDS ORDERED: ONDANSETRON 4 MG/2 ML VIAL IVPUSH PRN (13:15)
[2017-03-01] MEDS ORDERED: PROMETHAZINE HCL 25 MG/1 ML VIAL IVPUSH PRN (13:15)
[2017-03-01] MEDS ORDERED: ACETAMINOPHEN 325 MG TABLET (FP) PO ONE (14:24)
[2017-03-01 15:40] VITALS: BP 138/54; PULSE 70; TEMP 98
--- NOTE | 2017-03-06 16:02 | PATH ---
Surgical Pathology Report Patient Name: NICKY YADAV Med. Rec. #: [id number] /Age/Gender: 1975 (Age: 41) / F Account: [id number] Location: [facility] Taken: 03/01/2017 Received: 03/05/2017 Reported: 03/06/2017 Physicians: Ector Cerrato M.D. Specimen(s) Received LEFT URETERAL STONE Clinical History Left hydronephrosis Final Diagnosis STONE, LEFT URETER, EXTRACTION: CALCULUS (GROSS EXAM) SPECIMEN SENT FOR CHEMICAL ANALYSIS. Electronically Signed Gilbert Pisano M.D. Gross Description Received fresh labeled "left ureteral stone" is a martinez, irregular calculus which is sent for chemical analysis. /03/05/201703/05/2017
[2017-03-19 00:06] LABS: COLOR Tan (.)
--- NOTE | 2017-05-20 21:21 | OP ---
DATE OF OPERATION: 03/01/2017 PREOPERATIVE DIAGNOSES: Left renal colic, left ureteral stone. POSTOPERATIVE DIAGNOSES: Left renal colic, left ureteral stone. OPERATIVE PROCEDURE: Cystourethroscopy, left retrograde pyelogram, left ureteroscopic laser lithotripsy, and placement of a left JJ stent. ANESTHESIA: General. DESCRIPTION OF PROCEDURE: Under the above-stated anesthesia, patient is prepped and draped in the usual sterile manner. She is placed in the dorsal lithotomy position. External genitalia revealed a grade 1 cystorectocele. Vaginal mucosa was dry. Meatus was open. Cystoscopy revealed squamous metaplasia of the trigone. No lesions were noted. No calculi were seen. Ureteral orifices were within normal limits with efflux of clear urine from the right. None was seen on the left side. A Flexi-Tip catheter was placed into the left ureteral orifice, and 5 mL of contrast were injected. This revealed a normal upper ureter with a filling defect at the level of the ureteropelvic junction. A Glidewire was then passed up the left renal unit. The cystoscope was removed. A semi-rigid ureteroscope was inserted. Ureteroscopy was then performed in the usual fashion. Lower ureter was within normal limits. Upper ureter revealed a stone at the level of the ureteropelvic junction. A 200 holmium fiber was introduced. The setting was set at 1 joule and 15 pulses per second. The stone was into multiple fragments. No active bleeding was noted. No other stones were seen. Afterwards, the ureteroscope was removed. A 22-cm 6-Malagasy left JJ stent was placed in the left renal unit. X-rays confirmed good position of the stent. The bladder was emptied. The scope was removed. The patient tolerated the procedure well. She returned to the recovery room in good condition. Shelbie [id number]
== END 2017-03-01 15:15 | disposition home or self-care (01) ==
LOC: JASU-SURG 09:08
PROVIDERS: ATTEND Urology
PROC: 0TF48ZZ Fragmentation in Left Kidney Pelvis, Via Natural or Artificial Opening Endoscopic (ICD-10-PCS; principal; 2017-03-01 11:00)
PROC: 0T778DZ Dilation of Left Ureter with Intraluminal Device, Via Natural or Artificial Opening Endoscopic (ICD-10-PCS; 2017-03-01 11:00)
DX: N20.0 Calculus of kidney (principal); N20.1 Calculus of ureter
CPT/HCPCS: 36415; 76000-TC; 82360; 87086; 88300-TC; 94760

== ENCOUNTER 2018-09-17 13:01 | Inpatient (IN) | payer BC ==
--- NOTE | 2018-09-17 13:18 | PDOC ---
Rapid Medical Evaluation Chief Complaint: Pain Time Seen by Provider: 09/17/18 13:14 Medical Evaluation: Allergies Allergy/AdvReac Type Severity Reaction Status Date / Time levofloxacin [From Levaquin] Allergy Severe Hives Verified 09/17/18 13:13 ceftriaxone sodium Allergy Intermediate Difficulty Verified 09/17/18 13:13 [From Rocephin] Breathing ciprofloxacin [From Cipro] Allergy Difficulty Verified 09/17/18 13:13 Breathing ciprofloxacin HCl Allergy Difficulty Verified 09/17/18 13:13 [From Cipro] Breathing Penicillins Allergy Difficulty Verified 09/17/18 13:13 Breathing nitrofurantoin AdvReac Severe Hives Verified 09/17/18 13:13 [From Macrobid] nitrofurantoin AdvReac Severe Hives Verified 09/17/18 13:13 macrocrystalline [From Macrobid] 09/17/18 13:15 Pt presents for abdominal pain for one week. Pt was seen by her PCP and told her she has an obstruction and to come for a CT scan. Hx of chron's Exam:TTP RUQ, appears uncomfortable Orders: labs, IV, urine Pt to proceed to ED for further evaluation Discharge Disposition - Diagnosis Abdominal pain Qualifiers: Abdominal location: right upper quadrant Qualified Code(s): R10.11 - Right upper quadrant pain - Referrals - Patient Instructions - Post Discharge Activity
[2018-09-17] MEDS ORDERED: SODIUM CHLORIDE 1,000 ML IV STA ×2 (14:39→18:14)
[2018-09-17] MEDS ORDERED: ACETAMINOPHEN 1000 MG/100 ML VIAL (NON FORMULARY) IVPB ONE (14:40)
--- NOTE | 2018-09-17 14:42 | PDOC ---
History of Present Illness - General Chief Complaint: Pain Stated Complaint: PCP BY PCP/ABD PAIN Time Seen by Provider: 09/17/18 13:14 - History of Present Illness Initial Comments: 09/17/18 14:41 Ms. Salazar is a 43 yo female w/ pmh of crohn's, endometriosis (s/p hysterectomy) , greater than 15 abdominal surgeries, MVP, Hypoglycemia, colitis, nephrolithiasis, hypothyroidism, who presents for evaluation of 1 week history of abdominal pain, nausea, and vomiting she reports is different from her normal crohn's symptoms. Patient reports she was evaluated by her PCP who performed Xray w/ concern of constipation. Patient took laxatives for 3 days which produced minor diarrhea however patient reports it was not commensurate to the fact she has not had a full BM in 1 week. The patient denies chest pain, shortness of breath, headache and dizziness. Denies fever and chills. Denies dysuria, frequency, urgency and hematuria. Past History - Past Medical History Allergies/Adverse Reactions: Allergies Allergy/AdvReac Type Severity Reaction Status Date / Time levofloxacin [From Levaquin] Allergy Severe Hives Verified 09/17/18 13:13 ceftriaxone sodium Allergy Intermediate Difficulty Verified 09/17/18 13:13 [From Rocephin] Breathing ciprofloxacin [From Cipro] Allergy Difficulty Verified 09/17/18 13:13 Breathing ciprofloxacin HCl Allergy Difficulty Verified 09/17/18 13:13 [From Cipro] Breathing Penicillins Allergy Difficulty Verified 09/17/18 13:13 Breathing nitrofurantoin AdvReac Severe Hives Verified 09/17/18 13:13 [From Macrobid] nitrofurantoin AdvReac Severe Hives Verified 09/17/18 13:13 macrocrystalline [From Macrobid] Home Medications: Ambulatory Orders Amox-Tr/K Cl [Augmentin - 875Mg Tablet] 1 tab PO BID 09/17/18 Gabapentin [Neurontin] 200 mg PO DAILY 09/17/18 Lipase/Protease/Amylase [Creon Dr 36,000 Units Capsule] 1 each PO ASDIR Ondansetron [Zofran -] 4 mg PO TID PRN 09/17/18 Cardiac Disorders: Yes (MVP) COPD: No Diabetes: No (HYPOGLYCEMIA) GI Disorders: Yes (CROHN'S) Disorders: Yes (kidney stones multiple times.) Kidney Stones: Yes Thyroid Disease: (hypo) - Surgical History Abdominal Surgery: Yes Appendectomy: Yes - Reproductive History Polycystic Ovaries: Yes Therapeutic (s) & number: No - Suicide/Smoking/Psychosocial Hx Smoking Status: Yes Smoking History: Current every day smoker Have you smoked in the past 12 months: Yes Number of Cigarettes Smoked Daily: 20 Information on smoking cessation initiated: No 'Breaking Loose' booklet given: 03/01/17 Hx Alcohol Use: No Drug/Substance Use Hx: No (IN RECOVERY FOR 6YRS) Substance Use Type: None Hx Substance Use Treatment: No Review of Systems - Review of Systems Comments:: 09/17/18 14:48 GENERAL/CONSTITUTIONAL: No fever or chills. No weakness. HEAD, EYES, EARS, NOSE AND THROAT: No change in vision. No ear pain or discharge. No sore throat. CARDIOVASCULAR: No chest pain or shortness of breath RESPIRATORY: No cough, wheezing, or hemoptysis. GASTROINTESTINAL: +N/V/D/constipation as described w/ abdominal pain GENITOURINARY: No dysuria, frequency, or change in urination. MUSCULOSKELETAL: No joint or muscle swelling or pain. No neck or back pain. SKIN: No rash NEUROLOGIC: No headache, vertigo, loss of consciousness, or change in strength/ sensation. ENDOCRINE: No increased thirst. No abnormal weight change HEMATOLOGIC/LYMPHATIC: No anemia, easy bleeding, or history of blood clots. ALLERGIC/IMMUNOLOGIC: No hives or skin allergy. *Physical Exam - Vital Signs Last Vital Signs Temp Pulse Resp BP Pulse Ox 98.5 F 101 H 20 139/63 99 09/17/18 13:14 09/17/18 13:14 09/17/18 13:14 09/17/18 13:14 09/17/18 13:14 - Physical Exam Comments: 09/17/18 14:48 GENERAL: Awake, alert, and fully oriented, in no acute distress HEAD: No signs of trauma, normocephalic, atraumatic EYES: PERRLA, EOMI, sclera anicteric, conjunctiva clear ENT: Auricles normal inspection, hearing grossly normal, nares patent, oropharynx clear without exudates. Moist mucosa NECK: Normal ROM, supple, no lymphadenopathy, JVD, or masses LUNGS: No distress, speaks full sentences, clear to auscultation bilaterally HEART: Regular rate and rhythm, normal S1 and S2, no murmurs, rubs or gallops, peripheral pulses normal and equal bilaterally. ABDOMEN: +JENNIFER Upper abdominal pain. Full abdomen, hyperactive bowel sounds. No guarding, no rebound. No masses EXTREMITIES: Normal inspection, Normal range of motion, no edema. No clubbing or cyanosis. NEUROLOGICAL: Cranial nerves II through XII grossly intact. Normal speech, normal gait, no focal sensorimotor deficits SKIN: Warm, Dry, normal turgor, no rashes or lesions noted. ED Treatment Course - LABORATORY CBC & Chemistry Diagram: 09/17/18 14:18 09/17/18 14:18 - RADIOLOGY Radiology Studies Ordered: Category Date Time Status ABDOMEN & PELVIS CT WITH CONTR [CT] Stat CT Scan 09/17/18 14:39 Ordered Medical Decision Making - Medical Decision Making 09/17/18 17:45 Ms. Salazar is a 43 yo female w/ pmh as described who presents for evaluation of symptoms c/w SBO vs. crohn's flare vs. other acute abdominal process. Patient evaluated with labs as below as well as CT abd/pelvis w/ IV/ORAL contrast. Patient labs grossly wnl. Currently pending CT. 09/17/18 18:[address] concerning for SBO via ER physician read. Currently pending radiologist evaluation. Patient will come in for further evaluation. Laboratory Results - last 24 hr 09/17/18 09/17/18 09/17/18 14:00 14:18 14:18 WBC 7.7 RBC 4.33 Hgb 13.3 Hct 40.3 MCV 93.1 MCH 30.7 MCHC 33.0 RDW 12.9 Plt Count 336 D MPV 8.0 Absolute Neuts (auto) 4.7 Neutrophils % 60.8 Lymphocytes % 29.8 Monocytes % 5.5 Eosinophils % 2.8 Basophils % 1.1 Nucleated RBC % 0 PT with INR 13.40 H INR 1.13 H PTT (Actin FS) 37.6 H Sodium Potassium Chloride Carbon Dioxide Anion Gap BUN Creatinine Creat Clearance w eGFR Random Glucose Lactic Acid 0.7 Calcium Total Bilirubin AST ALT Alkaline Phosphatase Total Protein Albumin Urine HCG, Qual 09/17/18 09/17/18 09/17/18 14:18 14:41 17:21 WBC RBC Hgb Hct MCV MCH MCHC RDW Plt Count MPV Absolute Neuts (auto) Neutrophils % Lymphocytes % Monocytes % Eosinophils % Basophils % Nucleated RBC % PT with INR INR PTT (Actin FS) Cancelled Sodium 137 Potassium 4.6 Chloride 106 Carbon Dioxide 26 Anion Gap 5 L BUN 4 L Creatinine 0.5 L Creat Clearance w eGFR 134.66 Random Glucose 93 Lactic Acid Calcium 9.4 Total Bilirubin 0.3 AST 11 L ALT 13 Alkaline Phosphatase 56 Total Protein 7.5 Albumin 4.2 Urine HCG, Qual Negative *DC/Admit/Observation/Transfer Diagnosis at time of Disposition: SBO (small bowel obstruction) Abdominal pain Qualifiers: Abdominal location: right upper quadrant Qualified Code(s): R10.11 - Right upper quadrant pain - Discharge Dispostion Decision to Admit order: Yes - Referrals Referrals: Jordan Cerrato MD [Primary Care Provider] - - Patient Instructions - Post Discharge Activity
[2018-09-17] MEDS ORDERED: ACETAMINOPHEN INJECTION 100 ML IVPB ONE (14:44)
[2018-09-17 14:58] LABS: BASO % 1.1 % (0-2.0); EOS % 2.8 % (0-4.5); HEMATOCRIT 40.3 % (32.4-45.2); HEMOGLOBIN 13.3 GM/dL (10.7-15.3); LYMPH % 29.8 % (8-40); MCH 30.7 pg (25.7-33.7); MEAN CELL VOLUME 93.1 fl (80-96); MONO % 5.5 % (3.8-10.2); NEUT % 60.8 % (42.8-82.8); PLATELET COUNT 336 K/MM3 (134-434); RBC 4.33 M/mm3 (3.60-5.2); RDW 12.9 % (11.6-15.6); WHITE BLOOD COUNT 7.7 K/mm3 (4.0-10.0)
[2018-09-17 15:08] LABS: INR 1.13 (0.83-1.09); PROTHROMBIN TIME (PATIENT) 13.4 SEC (9.7-13.0)
[2018-09-17 15:11] LABS: ACTIVATED PTT 37.6 SECONDS (25.2-36.5)
[2018-09-17] MEDS ORDERED: morphine CARPU-JECT 4 MG/1 ML DISP.SYRIN IVPUSH ONE (15:42)
[2018-09-17] MEDS ORDERED: ONDANSETRON 4 MG/2 ML VIAL IVPUSH ONE (15:42)
[2018-09-17] MEDS ORDERED: ONDANSETRON 4 MG/2 ML VIAL ONE (15:45)
[2018-09-17] MEDS ORDERED: MORPHINE SULFATE 2 MG/ML VIAL ONE (15:45)
--- NOTE | 2018-09-17 15:49 | PDOC ---
Attending Attestation - Resident Resident Name: Antonino Ramires - ED Attending Attestation I have performed the following: I have examined & evaluated the patient, The case was reviewed & discussed with the resident, I agree w/resident's findings & plan, Exceptions are as noted - HPI HPI: 09/17/18 15:43 The patient is a 43 year old female, with a significant past medical history of crohn's, endometriosis s/p hysterectomy and multiple ex-laps, MVP, colitis, nephrolithiasis, hypothyroidism, who presents to the emergency department with one week of nausea, vomiting, diffuse abdominal pain, and constipation. She reports her emesis is yellow and mixed with food. She denies blood in her emesis. She states she had a small episode of watery stool but did not have a normal BM for a week. The patient denies chest pain, shortness of breath, headache and dizziness. The patient denies fever, chills. The patient denies dysuria, frequency, urgency and hematuria. Allergies: levofloxacin, penicillin, ceftriaxone sodium, ciprofloxacin, nitrofurantoin Past surgical history: oophorectomy,kidney stones lithotripsy, appendectomy, hysterectomy Social history: She reports cigarette use (20 daily). She denies alcohol and drug use. PCP - Dr. Jordan Cerrato - Physicial Exam PE: 09/17/18 15:47 GENERAL: Awake, alert, and fully oriented, in no acute distress but appears uncomfortable EYES: PERRLA, EOMI, sclera anicteric, conjunctiva clear ENT: oropharynx clear without exudates. Moist mucosa NECK: Normal ROM, supple, no lymphadenopathy, JVD, or masses LUNGS: Breath sounds equal, clear to auscultation bilaterally. No wheezes, and no crackles HEART: Regular rate and rhythm, normal S1 and S2, no murmurs, rubs or gallops ABDOMEN: Soft, +diffuse mild ttp, normoactive bowel sounds. No guarding, no rebound. No masses EXTREMITIES: Normal range of motion, no edema. No cords, erythema, or tenderness NEUROLOGICAL: Normal speech, cranial nerves intact, equal strength and sensation b/l SKIN: Warm, Dry, normal turgor, no rashes or lesions noted. - Medical Decision Making 09/17/18 18:39 43yo F with MMP including crohns, multiple ex-laps prsents to the ED with 1 week of diffuse abd pain, nausea, vomiting, and constipation. Vitals unremarkable Exam with diffuse abd ttp DDx includes but not limited to SBO vs ileus vs LBO Plan for labs, CTAP with PO contrast, UA, reassess UA with many epithelial cells, WBCs, unlikely UTI as pt has no urinary sxs Heart Score/ECG Review #1 09/17/18 18:41 Twelve-lead EKG was performed and reviewed by me. Sinus bradycardia, rate 59. Normal axis. No ST elevations or T-wave inversions.
--- NOTE | 2018-09-17 16:05 | CON.ID ---
Consult - Past Medical History Renal/: Yes: UTI - Past Surgical History Past Surgical History: Yes: Appendectomy, Hysterectomy (endometriosis sx) - Alcohol/Substance Use Hx Alcohol Use: No History of Substance Use: reports: Tranquilizers - Smoking History Smoking history: Current every day smoker Have you smoked in the past 12 months: Yes Aproximately how many cigarettes per day: 20 - Social History ADL: Independent History of Recent Travel: No Home Medications - Allergies Allergies/Adverse Reactions: Allergies Allergy/AdvReac Type Severity Reaction Status Date / Time levofloxacin [From Levaquin] Allergy Severe Hives Verified 09/17/18 13:13 ceftriaxone sodium Allergy Intermediate Difficulty Verified 09/17/18 13:13 [From Rocephin] Breathing ciprofloxacin [From Cipro] Allergy Difficulty Verified 09/17/18 13:13 Breathing ciprofloxacin HCl Allergy Difficulty Verified 09/17/18 13:13 [From Cipro] Breathing Penicillins Allergy Difficulty Verified 09/17/18 13:13 Breathing nitrofurantoin AdvReac Severe Hives Verified 09/17/18 13:13 [From Macrobid] nitrofurantoin AdvReac Severe Hives Verified 09/17/18 13:13 macrocrystalline [From Macrobid] - Home Medications Home Medications: Ambulatory Orders Amox-Tr/K Cl [Augmentin - 875Mg Tablet] 1 tab PO BID 09/17/18 Gabapentin [Neurontin] 200 mg PO DAILY 09/17/18 Lipase/Protease/Amylase [Lakshmi Ackerman 36,000 Units Capsule] 1 each PO ASDIR Ondansetron [Zofran -] 4 mg PO TID PRN 09/17/18 Physical Exam Vital Signs: Vital Signs Temperature 98.5 F 09/17/18 13:14 Pulse Rate 101 H 09/17/18 13:14 Respiratory Rate 20 09/17/18 13:14 Blood Pressure 139/63 09/17/18 13:14 O2 Sat by Pulse Oximetry (%) 99 09/17/18 13:14 Labs: CBC, BMP 09/17/18 14:18
[2018-09-17 17:14] LABS: BLOOD UREA NITROGEN 4 mg/dL (7-18); GLUCOSE,RANDOM 93 mg/dL (74-106)
[2018-09-17 17:15] LABS: ALBUMIN 4.2 g/dl (3.4-5.0); ALK PHOS 56 U/L (45-117); ANION GAP 5 MMOL/L (8-16); BILIRUBIN,TOTAL 0.3 mg/dL (0.2-1); CALCIUM 9.4 mg/dL (8.5-10.1); CHLORIDE 106 mmol/L (98-107); CO2 26 mmol/L (21-32); CREATININE 0.5 mg/dL (0.55-1.3); POTASSIUM 4.6 mmol/L (3.5-5.1); SGOT/AST 11 U/L (15-37); SGPT/ALT 13 U/L (13-61); SODIUM 137 mmol/L (136-145); TOT PROT 7.5 g/dl (6.4-8.2)
[2018-09-17 17:34] LABS: HCG,QUALITATIVE URINE Negative
[2018-09-17 17:48] LABS: PH,URINE 5.5 (5.0-8.0); URINE APPEARANCE CLOUDY; URINE BACTERIA 1.7 /hpf (NEGATIVE); URINE BILIRUBIN NEGATIVE (NEGATIVE); URINE CASTS 8 /hpf (0-8); URINE COLOR YELLOW; URINE GLUCOSE (UA) NEGATIVE (NEGATIVE); URINE KETONE TRACE (NEGATIVE); URINE LEUK ESTERASE 1+ (NEGATIVE); URINE NITRITE NEGATIVE (NEGATIVE); URINE PROTEIN NEGATIVE (NEGATIVE); URINE RBC 3 /hpf (0-4); URINE UROBILINOGEN 0.2 mg/dL (0.2-1.0); URINE WBC 16 /hpf (0-5)
[2018-09-17] MEDS ORDERED: SODIUM CHLORIDE 1,000 ML IV SCH (21:30)
[2018-09-17] MEDS ORDERED: ACETAMINOPHEN 325 MG TABLET (FP) PO PRN (22:24)
[2018-09-17] MEDS: SODIUM CHLORIDE 0.45% 1,000 ML IV SCH (23:36)
[2018-09-17] MEDS: MORPHINE SULFATE 2 MG/ML VIAL IVPUSH PRN (23:37)
[2018-09-17] MEDS: ONDANSETRON 4 MG/2 ML VIAL IVPUSH PRN (23:39)
--- NOTE | 2018-09-18 00:48 | CONSULT ---
Consult Consult Specialty:: General Surgery Referred by:: Dr. Al Cerrato Reason for Consultation:: possible SBO, h/o Crohn's - History of Present Illness Chief Complaint: upper abdominal pain, anorexia, fever/chills, constipation, N/V History of Present Illness: 43yo F with Crohn's disease, endometriosis s/p multiple laparoscopies and hysterectomy with RSO, S/P appendectomy, recurrent UTIs s/p cystoscopies w/ stents, began having upper/epigastric pain about 10 days ago at home, asssociated with anorexia, - she thought it might be a Crohn's flare. When it wasn't really better by last , she saw her PCP Dr. Cerrato, who got an AXR and thought it looked like she might be constipated. He gave her "Trulance" to help her go to the bathroom (taken daily), and she did have small but liquidy BMs daily for a bit. The pain never really got better though, and then became significant yesterday, when she went back to him. At that point, the XR had been read as suggestive of constipation and possibly even obstruction, and Dr. Cerrato wanted her to come to the hospital for CT scan yesterday, but she asked to do it today as outpatient. Today, she began having N/V just before coming to do so (yellow). In the ER, labs were essentially normal, including wbc , LFTs; urine with few ketones suggested dehydration. CT was done showing oral contrast throughout SB/LB, no obstruction, no inflammatory foci, some chronic changes of terminal ileum and mildly thickened sigmoid colon with diverticulosis but no diverticulitis. Surgery was asked to assess. She is seen and examined in her bed on the floor. She reports not having had BMs yet since prior to CT. Still with epigastric pain, IV tylenol not relieving it. Admits to fever/chills (to about 100) at home last couple days, no real appetite all week. She forced herself to eat yesterday, and had half a caesar wrap (took her Creon pill with it). This morning, she had a cup of coffee, some water and a Red Bull. She had her daughter on speakerphone during the history and exam. Overall, she does not feel better or worse. She describes usual bowel habits as diarrhea, not constipation, and generally she goes every time she eats. She realized when Dr. Cerrato thought she was constipated, that she might have gone a couple of days without a good BM. She has not yet started to evacuate out the oral CT contrast yet. She still feels some nausea. 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 She smokes 1ppd and does not use marijuana. Only home meds are Gabapentin and Creon. She takes prn tylenol or ibuprofen. She denies using aspirin daily or any immumodulators for Crohn's, which was diagnosed 4 years ago. Her last major surgery (hyst/RSO) was about 8 years ago. She has never needed a bowel resection for the Crohn's. Last upper and lower scopes were about 3 years ago. - History Source History Provided By: Patient Limitations to Obtaining History: No Limitations - Past Medical History OPTICIAN: Yes: Vertigo (uses meclizine 25mg prn) Gastrointestinal: Yes: Crohn's Disease (x4 years), Diverticulosis, Hemorrhoids ( had been prominent , still with occasional prolapsing small one) Renal/: Yes: UTI Reproductive: Yes: Endometriosis (no problems with it since hysterectomy) ...: No Psych: Yes: Anxiety (had mild attack yesterday in doctors office) ENT: Yes: Other (had a cold with laryngitis a few weeks ago but recovered now) - Past Surgical History Past Surgical History: Yes: Appendectomy, Colonoscopy, Hysterectomy ( endometriosis sx), Oopherectomy (right side, taken with uterus for endometriosis "wrapped around"), Upper Endoscopy Additional Surgical History: mulitple cystoscopies and urologic stents; multiple laparoscopies for endometriosis - Alcohol/Substance Use Hx Alcohol Use: No (recovering alcoholic, 8 years) History of Substance Use: reports: Prescription ("pain medication" - in past, also in recovery), Tranquilizers - Smoking History Smoking history: Current every day smoker Have you smoked in the past 12 months: Yes Aproximately how many cigarettes per day: 20 - Social History Usual Living Arrangement: With Child ADL: Independent History of Recent Travel: No Home Medications - Allergies Allergies/Adverse Reactions: Allergies Allergy/AdvReac Type Severity Reaction Status Date / Time levofloxacin [From Levaquin] Allergy Severe Hives Verified 09/17/18 13:13 ceftriaxone sodium Allergy Intermediate Difficulty Verified 09/17/18 13:13 [From Rocephin] Breathing ciprofloxacin [From Cipro] Allergy Difficulty Verified 09/17/18 13:13 Breathing ciprofloxacin HCl Allergy Difficulty Verified 09/17/18 13:13 [From Cipro] Breathing Penicillins Allergy Difficulty Verified 09/17/18 13:13 Breathing nitrofurantoin AdvReac Severe Hives Verified 09/17/18 13:13 [From Macrobid] nitrofurantoin AdvReac Severe Hives Verified 09/17/18 13:13 macrocrystalline [From Macrobid] - Home Medications Home Medications: Ambulatory Orders Gabapentin [Neurontin] 200 mg PO DAILY 09/17/18 Lipase/Protease/Amylase [Lakshmi Dr 36,000 Units Capsule] 1 each PO AC 09/17/18 Family Disease History - Family Disease History Family History: Unremarkable (noncontributory) Review of Systems - Review of Systems Constitutional: reports: Chills, Fever, Loss of Appetite Eyes: reports: Other (glasses for distance/driving). denies: Recent Change in Vision HENT: reports: Other (lost voice w/cold few weeks ago, better now). denies: Difficult Swallowing, Throat Pain Neck: denies: Swollen Glands, Tenderness Cardiovascular: denies: Chest Pain, Palpitations Respiratory: denies: Cough, SOB Gastrointestinal: reports: Abdominal Pain (with hpi), Constipation (with hpi), Diarrhea (more chronically), Nausea (with hpi), Vomiting (with hpi) Genitourinary: denies: Burning, Dysuria Musculoskeletal: denies: Back Pain, Joint Pain, Muscle Pain Integumentary: denies: Change in Color, Rash Neurological: denies: Dizziness, Headache Psychiatric: reports: Anxiety Physical Exam Vital Signs: Vital Signs Temperature 98.5 F 09/17/18 20:32 Pulse Rate 54 L 09/17/18 20:32 Respiratory Rate 18 09/17/18 20:32 Blood Pressure 116/76 09/17/18 20:32 O2 Sat by Pulse Oximetry (%) 99 09/17/18 13:14 Constitutional: Yes: Well Nourished, No Distress, Calm Eyes: Yes: Conjunctiva Clear, EOM Intact HENT: Yes: Atraumatic, Normocephalic Neck: Yes: Supple, Trachea Midline Cardiovascular: Yes: Regular Rate and Rhythm, Murmur Respiratory: Yes: Regular, CTA Bilaterally Gastrointestinal: Yes: Soft, Hyperactive Bowel Sounds, Tenderness (mild RUQ, also referred to upper/epigastric area from lower midline), Tenderness, Epigastrium (mild), Other (well-healed RLQ and Pfannenstiel scars, laparocopic scars; umbilicus with debris plug removed from depths). No: Distention, Tenderness, Rebound ...Rectal Exam: Yes: Deferred Renal/: No: CVA Tenderness - Left, CVA Tenderness - Right Musculoskeletal: No: Back Pain (no direct tenderness), Joint Swelling Extremities: No: Cool, Cyanosis Edema: No Peripheral Pulses WNL: Yes Integumentary: Yes: Tattoos. No: Jaundice, Rash Neurological: Yes: Alert, Oriented. No: Unsteady Gait Psychiatric: Yes: Alert, Oriented Labs: CBC, BMP 09/17/18 14:18 09/17/18 14:18 CMP Sodium 137 mmol/L (136-145) 09/17/18 14:18 Potassium 4.6 mmol/L (3.5-5.1) 09/17/18 14:18 Chloride 106 mmol/L (98-107) 09/17/18 14:18 Carbon Dioxide 26 mmol/L (21-32) 09/17/18 14:18 Anion Gap 5 MMOL/L (8-16) L 09/17/18 14:18 BUN 4 mg/dL (7-18) L 09/17/18 14:18 Creatinine 0.5 mg/dL (0.55-1.3) L 09/17/18 14:18 Creat Clearance w eGFR 134.66 (>60) 09/17/18 14:18 Random Glucose 93 mg/dL (74-106) 09/17/18 14:18 Lactic Acid 0.7 mmol/L (0.4-2.0) 09/17/18 14:00 Calcium 9.4 mg/dL (8.5-10.1) 09/17/18 14:18 Total Bilirubin 0.3 mg/dL (0.2-1) 09/17/18 14:18 AST 11 U/L (15-37) L 09/17/18 14:18 ALT 13 U/L (13-61) 09/17/18 14:18 Alkaline Phosphatase 56 U/L (45-117) 09/17/18 14:18 Total Protein 7.5 g/dl (6.4-8.2) 09/17/18 14:18 Albumin 4.2 g/dl (3.4-5.0) 09/17/18 14:18 INR, PTT INR 1.13 (0.83-1.09) H 09/17/18 14:18 Urine Test Results Urine Color Yellow 09/17/18 17:21 Urine Appearance Cloudy 09/17/18 17:21 Urine pH 5.5 (5.0-8.0) 09/17/18 17:21 Ur Specific Lolita 1.011 (1.010-1.035) 09/17/18 17:21 Urine Protein Negative (NEGATIVE) 09/17/18 17:21 Urine Glucose (UA) Negative (NEGATIVE) 09/17/18 17:21 Urine Ketones Trace (NEGATIVE) H 09/17/18 17:21 Urine Blood Trace (NEGATIVE) 09/17/18 17:21 Urine Nitrite Negative (NEGATIVE) 09/17/18 17:21 Urine Bilirubin Negative (NEGATIVE) 09/17/18 17:21 Ur Leukocyte Esterase 1+ (NEGATIVE) H 09/17/18 17:21 Imaging - Results Cat Scan: Report Reviewed, Image Reviewed (images reviewed - oral contrast throughout SB and LB, no evidence of obstruction; somewhat thickened appearance to sigmoid and, less so, terminal ileum; absent appendix and uterus; no inflammatory changes around bowels or other structures; no obvious gallbladder acute pathology) Problem List - Problems (1) Epigastric pain Assessment/Plan: admitted to medicine ID and GI also to be consulted CT shows no evidence of obstruction, inflammation, colitis or diverticulitis wbc normal - no clear infectious pathology anticipate diarrhea from CT oral contrast over next few days NPO/IVF for now except essential meds with sips pain meds prn, nonnarcotics first line trend labs could check AXR in 1-2 days to ensure washout of all enteral contrast consider stool studies, though C. diff low on differential no acute surgical issues identified will follow up Thank you for the opportunity to participate in the care of this patient. Code(s): R10.13 - EPIGASTRIC PAIN (2) Epigastric abdominal tenderness without rebound tenderness Code(s): R10.816 - EPIGASTRIC ABDOMINAL TENDERNESS (3) Nausea & vomiting Assessment/Plan: desiree prn Code(s): R11.2 - NAUSEA WITH VOMITING, UNSPECIFIED Qualifiers: Vomiting type: unspecified Vomiting Intractability: non-intractable Qualified Code(s): R11.2 - Nausea with vomiting, unspecified (4) Crohn's disease without complication Code(s): K50.90 - CROHN'S DISEASE, UNSPECIFIED, WITHOUT COMPLICATIONS Qualifiers: Gastrointestinal tract location: small and large intestine Qualified Code(s ): K50.80 - Crohn's disease of both small and large intestine without complications
[2018-09-18 00:57] LABS: AMYLASE 41 U/L (25-115); LIPASE 101 U/L (73-393)
[2018-09-18 01:23] VITALS: BMI 20.9
[2018-09-18] MEDS: MORPHINE SULFATE 2 MG/ML VIAL IVPUSH PRN ×2 (05:27→11:53)
[2018-09-18] MEDS: ONDANSETRON 4 MG/2 ML VIAL IVPUSH PRN (05:28)
[2018-09-18] MEDS: SODIUM CHLORIDE 0.45% 1,000 ML IV SCH (05:29)
[2018-09-18 08:20] LABS: BASO % 1.3 % (0-2.0); EOS % 7.2 % (0-4.5); HEMATOCRIT 34.8 % (32.4-45.2); HEMOGLOBIN 11.6 GM/dL (10.7-15.3); LYMPH % 32.7 % (8-40); MCH 31.1 pg (25.7-33.7); MCHC 33.4 g/dl (32.0-36.0); MEAN CELL VOLUME 93.3 fl (80-96); MEAN PLT VOLUME 8.2 fl (7.5-11.1); MONO % 6.6 % (3.8-10.2); NEUT % 52.2 % (42.8-82.8); PLATELET COUNT 279 K/MM3 (134-434); RBC 3.73 M/mm3 (3.60-5.2); RDW 12.8 % (11.6-15.6); WHITE BLOOD COUNT 4.6 K/mm3 (4.0-10.0)
--- NOTE | 2018-09-18 08:31 | CON.GI ---
Consult Consult Specialty:: GI Referred by:: Dr. Jordan Cerrato Reason for Consultation:: abdominal pain with nausea, vomiting - History of Present Illness Chief Complaint: Abdominal pain with nausea and vomiting History of Present Illness: Patient is a 43 y/o female with past medical history consisting of focal active ileitis by colonoscopy and Colitis. Patient started experiencing burning, non radiating lower abdominal pain 1 week ago and was seen by PMD. An abdominal Xray was originally ordered and as per patient was shown to have constipation and was started on stool softeners with no real effect. Patient returned to PMD with increase in abdominal pain accompanied with poor appetite and two episodes of low grade fever at home (Tmax 100.1F) and was sent for outpatient CT scan on 09/17/18. On day of CT scan patient began to experience NBNB vomiting x [address] scan shows possible mild concentric wall thickening involving terminal ileum, without perienteric edema or fluid accumulated, extensive sigmoid diverticulosis, concentric wall thickening along length of sigmoid colon probably on basis of muscular hypertrophy associated with diverticular disease. Patient continues to experience lower abdominal burning pain accompanied with nausea and now diarrhea which began last night. Diarrhea is described as non-bloody, with night awakenings. She denies recent travel but admits to taking PO augmentin 1 week ago for UTI. Denies rectal bleeding but states she experienced one episode of melena during the week. She states since symtpoms began she lost 4lbs in 1 week. On exam currently no leukocytosis noted and patient is afebrile. Colonoscopy done 04/18/15 noted with erosion in ileum, no evidence of significant architectual distortion and diagnosed with focal acute ileitis. Had EUS done with Dr Schwarz on 08/03/15 for epigastric pain, elev ESR/CRP, and abnormal weight loss, noted with normal pancreas. She was suppoese to have an eneteroscopy with Dr Schwarz. 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) Gastrointestinal: Yes: Crohn's Disease (x4 years), Diverticulosis, Hemorrhoids ( had been prominent , still with occasional prolapsing small one) Renal/: Yes: UTI ...: No Psych: Yes: Anxiety (had mild attack yesterday in doctors office) ENT: Yes: Other (had a cold with laryngitis a few weeks ago but recovered now) - Past Surgical History Past Surgical History: Yes: Appendectomy, Colonoscopy, Hysterectomy ( endometriosis sx), Oopherectomy (right side, taken with uterus for endometriosis "wrapped around"), Upper Endoscopy Additional Surgical History: mulitple cystoscopies and urologic stents; multiple laparoscopies for endometriosis - Alcohol/Substance Use Hx Alcohol Use: No (recovering alcoholic, 8 years) History of Substance Use: reports: Prescription ("pain medication" - in past, also in recovery), Tranquilizers - Smoking History Smoking history: Current every day smoker Have you smoked in the past 12 months: Yes Aproximately how many cigarettes per day: 20 - Social History Usual Living Arrangement: With Child ADL: Independent History of Recent Travel: No Home Medications - Allergies Allergies/Adverse Reactions: Allergies Allergy/AdvReac Type Severity Reaction Status Date / Time levofloxacin [From Levaquin] Allergy Severe Hives Verified 09/17/18 13:13 ceftriaxone sodium Allergy Intermediate Difficulty Verified 09/17/18 13:13 [From Rocephin] Breathing ciprofloxacin [From Cipro] Allergy Difficulty Verified 09/17/18 13:13 Breathing ciprofloxacin HCl Allergy Difficulty Verified 09/17/18 13:13 [From Cipro] Breathing Penicillins Allergy Difficulty Verified 09/17/18 13:13 Breathing nitrofurantoin AdvReac Severe Hives Verified 09/17/18 13:13 [From Macrobid] nitrofurantoin AdvReac Severe Hives Verified 09/17/18 13:13 macrocrystalline [From Macrobid] - Home Medications Home Medications: Ambulatory Orders Gabapentin [Neurontin] 200 mg PO DAILY 09/17/18 Lipase/Protease/Amylase [Creon Dr 36,000 Units Capsule] 1 each PO AC 09/17/18 Family Disease History - Family Disease History Family Disease History: CA: Grandparent (maternal, colon CA) Review of Systems - Review of Systems Constitutional: reports: Unintentional Wgt. Loss Eyes: reports: No Symptoms HENT: reports: No Symptoms Neck: reports: No Symptoms Cardiovascular: reports: No Symptoms Respiratory: reports: No Symptoms Gastrointestinal: reports: Abdominal Pain, Diarrhea, Melena, Nausea, Vomiting Genitourinary: reports: No Symptoms Breasts: reports: No Symptoms Reported Musculoskeletal: reports: No Symptoms Integumentary: reports: No Symptoms Neurological: reports: No Symptoms Endocrine: reports: No Symptoms Hematology/Lymphatic: reports: No Symptoms Psychiatric: reports: No Symptoms Physical Exam-GI Vital Signs: Vital Signs Temperature 98.5 F 09/18/18 06:18 Pulse Rate 61 09/18/18 06:18 Respiratory Rate 20 09/18/18 06:18 Blood Pressure 108/74 09/18/18 06:18 O2 Sat by Pulse Oximetry (%) 98 09/18/18 01:54 Constitutional: Yes: Well Nourished, Calm Eyes: Yes: Conjunctiva Clear HENT: Yes: Atraumatic Neck: Yes: Supple Cardiovascular: Yes: Regular Rate and Rhythm Respiratory: Yes: Regular, CTA Bilaterally Gastrointestinal Inspection: Yes: WNL. No: Ascites, Distention, Hernia, Scars, Other ...Auscultate: Yes: Normoactive Bowel Sounds ...Palpate: Yes: Soft, Tenderness (LLQ, RUQ, epigastric) ...Percussion: Yes: Tympanitic. No: Dullness, Fluid Wave, Other Neurological: Yes: Alert, Oriented Psychiatric: Yes: Alert, Oriented Labs: INR, PTT INR 1.13 (0.83-1.09) H 09/17/18 14:18 Active Medications Generic Name Dose Route Start Last Admin Trade Name Dagoberto PRN Reason Stop Dose Admin Acetaminophen 650 mg 09/17/18 22:24 Tylenol - PO Q4H PRN TEMP OVER 101 Sodium Chloride 1,000 mls @ 125 mls/hr 09/17/18 21:30 09/17/18 23:36 Normal Saline - IV Not Given ASDIR JESUSITA Sodium Chloride 1,000 mls @ 125 mls/hr 09/17/18 22:30 09/18/18 05:29 1/2 Normal Saline IV 125 mls/hr ASDIR JESUSITA Administration Metronidazole 500 mg in 100 mls @ 100 mls/hr 09/17/18 22:30 09/17/18 23:42 Flagyl 500mg Premixed Ivpb - IVPB 09/22/18 10:59 100 mls/hr BID JESUSITA Administration Morphine Sulfate 2 mg 09/17/18 22:20 09/18/18 05:27 Morphine Sulfate IVPUSH 2 mg Q4H PRN Administration PAIN LEVEL 3 - 6 Ondansetron HCl 4 mg 09/17/18 22:26 09/18/18 05:28 Zofran Injection IVPUSH 4 mg Q4H PRN Administration NAUSEA AND/OR VOMITING Imaging - Results Cat Scan: Report Reviewed Problem List - Problems (1) Abdominal pain Assessment/Plan: >maintained NPO status >continue IV hydration >continue IVPB flagyl Code(s): R10.9 - UNSPECIFIED ABDOMINAL PAIN Qualifiers: Abdominal location: right upper quadrant Qualified Code(s): R10.11 - Right upper quadrant pain (2) Epigastric pain Assessment/Plan: >start on IV pantoprazole >maintain NPO status Code(s): R10.13 - EPIGASTRIC PAIN (3) Nausea & vomiting Assessment/Plan: >reglan 10mg IVPB q8h Code(s): R11.2 - NAUSEA WITH VOMITING, UNSPECIFIED Qualifiers: Vomiting type: unspecified Vomiting Intractability: non-intractable Qualified Code(s): R11.2 - Nausea with vomiting, unspecified (4) Ileitis Assessment/Plan: etiology unclear R> will need to follow up with Dr Schwarz for colonoscopy and EGD with enteroscopy as suggested Code(s): K52.9 - NONINFECTIVE GASTROENTERITIS AND COLITIS, UNSPECIFIED
[2018-09-18 08:53] LABS: ALBUMIN 3.4 g/dl (3.4-5.0); ALK PHOS 48 U/L (45-117); ANION GAP 4 MMOL/L (8-16); BILIRUBIN,TOTAL 0.3 mg/dL (0.2-1); BLOOD UREA NITROGEN 3 mg/dL (7-18); CALCIUM 8.7 mg/dL (8.5-10.1); CHLORIDE 111 mmol/L (98-107); CO2 25 mmol/L (21-32); CREATININE 0.4 mg/dL (0.55-1.3); GLUCOSE,RANDOM 75 mg/dL (74-106); LIPASE 82 U/L (73-393); POTASSIUM 4.2 mmol/L (3.5-5.1); SGOT/AST 9 U/L (15-37); SGPT/ALT 11 U/L (13-61); SODIUM 140 mmol/L (136-145); TOT PROT 6.1 g/dl (6.4-8.2)
--- NOTE | 2018-09-18 10:55 | HP ---
Admitting History and Physical - Admission Chief Complaint: c/o abd pain scale 9. x 1 wk n/v on off. 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 25mg prn) Gastrointestinal: Yes: Crohn's Disease (x4 years), Diverticulosis, Hemorrhoids ( had been prominent , still with occasional prolapsing small one) Renal/: Yes: UTI ...: No Psych: Yes: Anxiety (had mild attack yesterday in doctors office) ENT: Yes: Other (had a cold with laryngitis a few weeks ago but recovered now) - Past Surgical History Past Surgical History: Yes: Appendectomy, Colonoscopy, Hysterectomy ( endometriosis sx), Oopherectomy (right side, taken with uterus for endometriosis "wrapped around"), Upper Endoscopy - Smoking History Smoking history: Current every day smoker Have you smoked in the past 12 months: Yes Aproximately how many cigarettes per day: 20 - Alcohol/Substance Use Hx Alcohol Use: No (recovering alcoholic, 8 years) History of Substance Use: reports: Prescription ("pain medication" - in past, also in recovery), Tranquilizers - Social History ADL: Independent History of Recent Travel: No Home Medications - Allergies Allergies/Adverse Reactions: Allergies Allergy/AdvReac Type Severity Reaction Status Date / Time levofloxacin [From Levaquin] Allergy Severe Hives Verified 09/17/18 13:13 ceftriaxone sodium Allergy Intermediate Difficulty Verified 09/17/18 13:13 [From Rocephin] Breathing ciprofloxacin [From Cipro] Allergy Difficulty Verified 09/17/18 13:13 Breathing ciprofloxacin HCl Allergy Difficulty Verified 09/17/18 13:13 [From Cipro] Breathing Penicillins Allergy Difficulty Verified 09/17/18 13:13 Breathing nitrofurantoin AdvReac Severe Hives Verified 09/17/18 13:13 [From Macrobid] nitrofurantoin AdvReac Severe Hives Verified 09/17/18 13:13 macrocrystalline [From Macrobid] - Home Medications Home Medications: Ambulatory Orders Gabapentin [Neurontin] 200 mg PO DAILY 09/17/18 Lipase/Protease/Amylase [Lakshmi Ackerman 36,000 Units Capsule] 1 each PO AC 03/27/19 Family Disease History - Family Disease History Family History: Unremarkable Family Disease History: CA: Grandparent (maternal, colon CA) Review of Systems - Review of Systems Gastrointestinal: reports: Abdominal Pain Physical Examination Vital Signs: Vital Signs Temperature 98.5 F 09/18/18 06:18 Pulse Rate 61 09/18/18 06:18 Respiratory Rate 20 09/18/18 06:18 Blood Pressure 108/74 09/18/18 06:18 O2 Sat by Pulse Oximetry (%) 98 09/18/18 01:54 Gastrointestinal: Yes: Hypoactive Bowel Sounds, Tenderness, Epigastrium Labs: CBC, BMP 09/18/18 07:30 09/18/18 07:30 Assessment/Plan cont atxb as is iv gi sx id appreteated pt reqesting to go home
[2018-09-18] MEDS ORDERED: PANTOPRAZOLE SODIUM 40 MG VIAL IVPUSH SCH (11:30)
[2018-09-18] MEDS: METOCLOPRAMIDE HCL INJECTION 10 MG/2 ML VIAL IVPB SCH ×2 (11:41→14:55)
--- NOTE | 2018-09-18 11:48 | EKG ---
Test Reason : Blood Pressure : / mmHG Vent. Rate : 059 BPM Atrial Rate : 059 BPM P-R Int : 162 ms QRS Dur : 080 ms QT Int : 436 ms P-R-T Axes : -16 043 069 degrees QTc Int : 431 ms SINUS BRADYCARDIA OTHERWISE NORMAL ECG WHEN COMPARED WITH ECG OF 11-FEB-2017 13:22, VENT. RATE HAS DECREASED BY 31 BPM NONSPECIFIC T WAVE ABNORMALITY NO LONGER EVIDENT IN ANTERIOR LEADS Confirmed by JUAN SHOEMAKER, ABISAI ([id number]) on 09/18/2018 11:48:23 AM Referred By: Confirmed By:ABISAI MARTINEZ MD
[2018-09-18 15:07] VITALS: BP 93/54; PULSE 59; TEMP 98.3
--- NOTE | 2018-09-18 15:10 | DS ---
Physical Examination Vital Signs: Vital Signs Temperature 98.3 F 09/18/18 14:05 Pulse Rate 59 L 09/18/18 14:05 Respiratory Rate 20 09/18/18 14:05 Blood Pressure 93/54 L 09/18/18 14:05 O2 Sat by Pulse Oximetry (%) 98 09/18/18 01:54 Constitutional: Yes: Well Nourished Eyes: Yes: WNL, Other Neck: Yes: WNL Cardiovascular: Yes: WNL Respiratory: Yes: WNL Gastrointestinal: Yes: Hypoactive Bowel Sounds, Tenderness, Epigastrium ...Rectal Exam: Yes: WNL Renal/: Yes: WNL Edema: No Peripheral Pulses WNL: Yes Integumentary: Yes: WNL Neurological: Yes: WNL ...Motor Strength: WNL Psychiatric: Yes: WNL Labs: CBC, BMP 09/18/18 07:30 09/18/18 07:30 Discharge Summary Reason For Visit: SMALL BOWEL OBSTRUCTION/ABD PAIN Current Active Problems Abdominal pain (Acute) Crohn's disease without complication (Acute) Epigastric abdominal tenderness without rebound tenderness (Acute) Epigastric pain (Acute) Nausea & vomiting (Acute) SBO (small bowel obstruction) (Acute) Condition: Fair - Instructions Diet, Activity, Other Instructions: liq diet appt w me m, flagyl 500 bid 7 day creon meds before meals called in at her pharmacy already Disposition: HOME - Home Medications Comprehensive Discharge Medication List: Ambulatory Orders Gabapentin [Neurontin] 200 mg PO DAILY 09/17/18 Lipase/Protease/Amylase [Lakshmi Ackerman 36,000 Units Capsule] 1 each PO AC 09/17/18
--- NOTE | 2018-09-18 15:35 | PN ---
Progress Note, Physician History of Present Illness: stable doing well passing gases hungry - Current Medication List Current Medications: Active Medications Acetaminophen (Tylenol -) 650 mg PO Q4H PRN PRN Reason: TEMP OVER 101 Sodium Chloride (Normal Saline -) 1,000 mls @ 125 mls/hr IV ASDIR [facility] Last Admin: 09/17/18 23:36 Dose: Not Given Sodium Chloride (1/2 Normal Saline) 1,000 mls @ 125 mls/hr IV ASDIR [facility] Last Admin: 09/18/18 05:29 Dose: 125 mls/hr Metronidazole (Flagyl 500mg Premixed Ivpb -) 500 mg in 100 mls @ 100 mls/hr IVPB BID [facility] Stop: 09/22/18 10:59 Last Admin: 09/18/18 09:57 Dose: 100 mls/hr Metoclopramide HCl (Reglan Injection -) 10 mg IVPB TID [facility] Last Admin: 09/18/18 14:55 Dose: Not Given Morphine Sulfate (Morphine Sulfate) 2 mg IVPUSH Q4H PRN PRN Reason: PAIN LEVEL 3 - 6 Last Admin: 09/18/18 11:53 Dose: 2 mg Ondansetron HCl (Zofran Injection) 4 mg IVPUSH Q4H PRN PRN Reason: NAUSEA AND/OR VOMITING Last Admin: 09/18/18 05:28 Dose: 4 mg Pantoprazole Sodium (Protonix Iv) 40 mg IVPUSH DAILY [facility] Last Admin: 09/18/18 11:42 Dose: 40 mg - Objective Vital Signs: Vital Signs Temperature 98.3 F 09/18/18 14:05 Pulse Rate 59 L 09/18/18 14:05 Respiratory Rate 20 09/18/18 14:05 Blood Pressure 93/54 L 09/18/18 14:05 O2 Sat by Pulse Oximetry (%) 98 09/18/18 01:54 Constitutional: Yes: No Distress, Calm Cardiovascular: Yes: Regular Rate and Rhythm Respiratory: Yes: Regular, CTA Bilaterally Gastrointestinal: Yes: Normal Bowel Sounds, Soft Musculoskeletal: Yes: WNL Extremities: Yes: WNL Neurological: Yes: Alert, Oriented Psychiatric: Yes: Alert, Oriented Labs: CBC, BMP 09/18/18 07:30 09/18/18 07:30 INR, PTT INR 1.13 (0.83-1.09) H 09/17/18 14:18 Assessment/Plan Problem List - Problems (1) Epigastric pain Code(s): R10.13 - EPIGASTRIC PAIN (2) Epigastric abdominal tenderness without rebound tenderness Code(s): R10.816 - EPIGASTRIC ABDOMINAL TENDERNESS (3) Nausea & vomiting Code(s): R11.2 - NAUSEA WITH VOMITING, UNSPECIFIED Qualifiers: Vomiting type: unspecified Vomiting Intractability: non-intractable Qualified Code(s): R11.2 - Nausea with vomiting, unspecified (4) Crohn's disease without complication Code(s): K50.90 - CROHN'S DISEASE, UNSPECIFIED, WITHOUT COMPLICATIONS Qualifiers: Gastrointestinal tract location: small and large intestine Qualified Code(s ): K50.80 - Crohn's disease of both small and large intestine without complications plan continue current mgmt dietary modifications rest as per the team gi and surgery on case
== END 2018-09-18 18:26 | disposition home or self-care (01) | DRG 387 ==
LOC: JER 13:01 → JERBED 18:47 → J5S 20:06
PROVIDERS: ADMIT Family Medicine; ATTEND Family Medicine
DX: K50.90 Crohn's disease, unspecified, without complications (principal); R10.11 Right upper quadrant pain; I34.1 Nonrheumatic mitral (valve) prolapse; E16.2 Hypoglycemia, unspecified; E03.9 Hypothyroidism, unspecified; N20.0 Calculus of kidney; K57.90 Diverticulosis of intestine, part unspecified, without perforation or abscess without bleeding; F41.9 Anxiety disorder, unspecified; F17.210 Nicotine dependence, cigarettes, uncomplicated; R11.2 Nausea with vomiting, unspecified; K52.9 Noninfective gastroenteritis and colitis, unspecified; K64.9 Unspecified hemorrhoids
CPT/HCPCS: 36415; 74177-TC; 80053; 81003; 82150; 83605; 83690; 84703; 85025; 85610; 85730; 86850; 86900; 86901; 87045; 87046; 87205; 87324; 87449; 93005; 93010; 99284-25; J0131; J7030

== ENCOUNTER 2019-05-15 11:07 | Emergency (ER) | payer BC ==
[2019-05-15 11:28] VITALS: BMI 18.6
[2019-05-15] MEDS ORDERED: SODIUM CHLORIDE 1,000 ML IV STA (11:28)
[2019-05-15] MEDS ORDERED: ACETAMINOPHEN 1000 MG/100 ML VIAL (NON FORMULARY) IVPB ONE (11:28)
--- NOTE | 2019-05-15 11:28 | PDOC ---
Rapid Medical Evaluation Time Seen by Provider: 05/15/19 11:22 Medical Evaluation: Allergies Allergy/AdvReac Type Severity Reaction Status Date / Time levofloxacin [From Levaquin] Allergy Severe Hives Verified 09/17/18 13:13 ceftriaxone sodium Allergy Intermediate Difficulty Verified 09/17/18 13:13 [From Rocephin] Breathing ciprofloxacin [From Cipro] Allergy Difficulty Verified 09/17/18 13:13 Breathing ciprofloxacin HCl Allergy Difficulty Verified 09/17/18 13:13 [From Cipro] Breathing Penicillins Allergy Difficulty Verified 09/17/18 13:13 Breathing nitrofurantoin AdvReac Severe Hives Verified 09/17/18 13:13 [From Macrobid] nitrofurantoin AdvReac Severe Hives Verified 09/17/18 13:13 macrocrystalline [From Macrobid] I have performed a brief in-person evaluation of this patient. The patient presents with a chief complaint of: sonogram last week showing 4 mm kidney stone; c/o L flank pain; was given Bactrim and pain meds, but still having L flank pain; +nausea, denies vomiting,diarrhea; has intermittent hematuria; hx of hysterectomy, crohn's disease, endometriosis Pertinent physical exam findings: +mild L CVA tenderness, +LLQ tenderness, in NAD I have ordered the following: Labs The patient will proceed to the ED for further evaluation. 05/15/19 11:25
[2019-05-15] MEDS ORDERED: ACETAMINOPHEN INJECTION 100 ML IVPB ONE (11:41)
[2019-05-15 12:21] LABS: URINE APPEARANCE CLEAR; URINE BILIRUBIN NEGATIVE (NEGATIVE); URINE COLOR YELLOW; URINE GLUCOSE (UA) NEGATIVE (NEGATIVE); URINE KETONE NEGATIVE (NEGATIVE); URINE LEUK ESTERASE NEGATIVE (NEGATIVE); URINE NITRITE NEGATIVE (NEGATIVE); URINE PROTEIN NEGATIVE (NEGATIVE); URINE UROBILINOGEN 0.2 mg/dL (0.2-1.0)
[2019-05-15 12:22] LABS: BASO % 1.5 % (0-2.0); EOS % 5.8 % (0-4.5); HEMATOCRIT 43.1 % (32.4-45.2); HEMOGLOBIN 14.5 GM/dL (10.7-15.3); MCH 31.8 pg (25.7-33.7); MCHC 33.7 g/dl (32.0-36.0); MEAN CELL VOLUME 94.3 fl (80-96); MEAN PLT VOLUME 7.5 fl (7.5-11.1); NEUT % 46.7 % (42.8-82.8); PLATELET COUNT 391 K/MM3 (134-434); RBC 4.57 M/mm3 (3.60-5.2); RDW 12.6 % (11.6-15.6); WHITE BLOOD COUNT 8.2 K/mm3 (4.0-10.0)
[2019-05-15 12:47] LABS: ALBUMIN 4.2 g/dl (3.4-5.0); BILIRUBIN,TOTAL 0.3 mg/dL (0.2-1); BLOOD UREA NITROGEN 8.2 mg/dL (7-18); CALCIUM 9.4 mg/dL (8.5-10.1); CREATININE 0.7 mg/dL (0.55-1.3); POTASSIUM 4.4 mmol/L (3.5-5.1); TOT PROT 7.3 g/dl (6.4-8.2)
--- NOTE | 2019-05-15 13:12 | PDOC ---
Documentation entered by Deidre Bond SCRIBE, acting as scribe for Figueroa Ku MD. Figueroa Ku MD: This documentation has been prepared by the Varun montgomery Xhesika, SCRIBE, under my direction and personally reviewed by me in its entirety. I confirm that the documentation accurately reflects all work, treatment, procedures, and medical decision making performed by me. History of Present Illness - General Chief Complaint: Pain, Acute Stated Complaint: LT KIDNEY PAIN Time Seen by Provider: 05/15/19 11:22 History Source: Patient Exam Limitations: No Limitations - History of Present Illness Initial Comments: 05/15/19 12:37 The patient is a 44 year old female, with a significant past medical history of crohn's, endometriosis s/p hysterectomy and multiple ex-laps, MVP, colitis, nephrolithiasis, hypothyroidism, and kidney stones who presents to the emergency department with LLQ abdominal pain and L flank pain x 1 week. Pt describes the pain as constant, intermittent in severity, radiating to her groin and suprpubic region, associated with chills, fevers and constipation. Patient notes she had a renal ultrasound last week showing 4 mm kidney stone in the kidneys and was given bactrim after urine showed blood and bacteria in it. Pt reports she also had a colonoscopy done on 05/07/19. The patient denies chest pain, shortness of breath, headache and dizziness. The patient denies N/V/ D. The patient denies dysuria, frequency, urgency. Allergies: levofloxacin, penicillin, ceftriaxone sodium, ciprofloxacin, nitrofurantoin Past surgical history: oophorectomy,kidney stone lithotripsy, appendectomy, hysterectomy Social history: She reports cigarette use (20 daily). She denies alcohol and drug use. PCP: Dr. Jordan Cerrato Past History - Past Medical History Allergies/Adverse Reactions: Allergies Allergy/AdvReac Type Severity Reaction Status Date / Time levofloxacin [From Levaquin] Allergy Severe Hives Verified 05/15/19 11:28 ceftriaxone sodium Allergy Intermediate Difficulty Verified 05/15/19 11:28 [From Rocephin] Breathing ciprofloxacin [From Cipro] Allergy Difficulty Verified 05/15/19 11:28 Breathing ciprofloxacin HCl Allergy Difficulty Verified 05/15/19 11:28 [From Cipro] Breathing Penicillins Allergy Difficulty Verified 05/15/19 11:28 Breathing nitrofurantoin AdvReac Severe Hives Verified 05/15/19 11:28 [From Macrobid] nitrofurantoin AdvReac Severe Hives Verified 05/15/19 11:28 macrocrystalline [From Macrobid] Home Medications: Ambulatory Orders Gabapentin [Neurontin] 200 mg PO DAILY 09/17/18 Lipase/Protease/Amylase [Creon Dr 36,000 Units Capsule] 1 each PO AC 09/17/18 Lipase/Protease/Amylase [[place] Dr 25,000 Unit Capsule] 1 each PO ASDIR Metoclopramide HCl [Reglan] 10 mg PO PRN 05/15/19 Anemia: No Asthma: No Cancer: No Cardiac Disorders: Yes (MVP) CVA: No COPD: No CHF: No Dementia: No Diabetes: No (HYPOGLYCEMIA) GI Disorders: Yes (CROHN'S) Disorders: Yes (kidney stones multiple times.) HTN: No Hypercholesterolemia: No Kidney Stones: Yes Seizures: No Thyroid Disease: (hypo) - Surgical History Abdominal Surgery: Yes Appendectomy: Yes - Reproductive History Polycystic Ovaries: Yes Therapeutic (s) & number: No - Psycho Social/Smoking Cessation Hx Smoking Status: Yes Smoking History: Current every day smoker Have you smoked in the past 12 months: Yes Number of Cigarettes Smoked Daily: 20 Information on smoking cessation initiated: No 'Breaking Loose' booklet given: 09/18/18 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 *Physical Exam - Vital Signs Last Vital Signs Temp Pulse Resp BP Pulse Ox 98.4 F 92 H 18 107/86 98 05/15/19 11:24 05/15/19 11:24 05/15/19 11:24 05/15/19 11:24 05/15/19 11:24 - Physical Exam Comments: 05/15/19 12:38 Vitals: Triage Vital signs reviewed General Appearance: no acute distress, well nourished well developed, Neck: Supple;No Nuchal rigidity Chest Wall: Nontender Cardiac: Regular rate and rhythm, no murmurs, no rubs, no gallops, Lungs: Clear to auscultation bilateral, good air movement bilaterally, Abdomen: + L sided abdominal tenderness to palpation. Soft, nondistended, normal bowel sounds, Extremities: Full range of motion to all extremities, no cyanosis, clubbing, or edema Skin: Warm and dry, no rashes or lesions, no petechiae Psych: normal mood, normal affect ED Treatment Course - LABORATORY CBC & Chemistry Diagram: 05/15/19 11:30 05/15/19 11:30 - Medications Given in the ED: ED Medications Discontinued Medications Generic Name Dose Route Start Last Admin Trade Name Freq PRN Reason Stop Dose Admin Acetaminophen 1,000 mg 05/15/19 11:28 05/15/19 12:12 Ofirmev Injection - IVPB 05/15/19 11:29 1,000 mg ONCE ONE Administration Medical Decision Making - Medical Decision Making 05/15/19 14:50 No acute findings on CAT scan no fever no white count no evidence of urinary tract infection CAT scan reviewed with radiologist there is significant constipation particularly on the left side given that patient is recently restarted taking Dilaudid this may be secondary to recent opiate use Relistor given in the emergency department Patient advised to take daily MiraLAX for 1 week and follow-up with Dr. Cerrato on Saturday or Saturday Findings, the need for follow-up and strict return instructions discussed with patient. Discharge - Discharge Information Problems reviewed: Yes Clinical Impression/Diagnosis: Abdominal pain Qualifiers: Abdominal location: lower abdomen, unspecified Qualified Code(s): R10.30 - Lower abdominal pain, unspecified Condition: Fair - Admission No - Follow up/Referral Referrals: Jordan Cerrato MD [Primary Care Provider] - - Patient Discharge Instructions Patient Printed Discharge Instructions: Constipation Additional Instructions: Drink plenty of fluids. Take 1 packet of MiraLAX daily x1 week. Discontinue the Dilaudid. Follow-up with Dr. Cerrato Saturday. Return to the ED for any fever greater than 100.4 severe worsening symptoms vomiting inability to tolerate fluids or for any concerns. - Post Discharge Activity
[2019-05-15] MEDS ORDERED: Methylnaltrexone Bromide 12 MG/0.6 ML KIT SQ ONE (14:08)
[2019-05-15 14:34] VITALS: BP 112/63; PULSE 67; TEMP 98.1
== END 2019-05-15 15:04 | disposition home or self-care (01) ==
LOC: JER 11:07
PROC: 3E023GC Introduction of Other Therapeutic Substance into Muscle, Percutaneous Approach (ICD-10-PCS; principal; 2019-05-15)
PROC: 3E033NZ Introduction of Analgesics, Hypnotics, Sedatives into Peripheral Vein, Percutaneous Approach (ICD-10-PCS; 2019-05-15)
DX: K59.00 Constipation, unspecified (principal); R10.30 Lower abdominal pain, unspecified; I34.1 Nonrheumatic mitral (valve) prolapse; E03.9 Hypothyroidism, unspecified; K50.90 Crohn's disease, unspecified, without complications; Z87.19 Personal history of other diseases of the digestive system; Z87.442 Personal history of urinary calculi; F17.210 Nicotine dependence, cigarettes, uncomplicated; Z88.1 Allergy status to other antibiotic agents; Z88.0 Allergy status to penicillin
CPT/HCPCS: 36415; 74177-TC; 80053; 81003; 85025; 87086; 99283-25; J0131; J7030

== ENCOUNTER 2020-09-27 14:27 | Emergency (ER) | payer BC ==
[2020-09-27 14:35] VITALS: BP 118/69; PULSE 86; TEMP 98.1; BMI 23.5
[2020-09-27] MEDS ORDERED: KETOROLAC TROMETHAMINE 30 MG/1 ML VIAL IM ONE (15:08)
[2020-09-27] MEDS ORDERED: TAMSULOSIN HCL 0.4 MG CAP PO ONE (15:08)
[2020-09-27] MEDS ORDERED: KETOROLAC TROMETHAMINE 30 MG/1 ML VIAL ONE (15:18)
[2020-09-27] MEDS ORDERED: TAMSULOSIN HCL 0.4 MG CAP ONE (15:21)
[2020-09-27 16:16] LABS: EPI CELLS 12 /uL (0-25.1); HCG,QUALITATIVE URINE Negative; HYALINE CASTS 1 /uL (0-3.1); PH,URINE 5.5 (5.0-8.0); URINE APPEARANCE CLEAR; URINE BACTERIA 839 /uL (0-1359); URINE BILIRUBIN NEGATIVE (NEGATIVE); URINE COLOR YELLOW; URINE GLUCOSE (UA) NEGATIVE (NEGATIVE); URINE KETONE NEGATIVE (NEGATIVE); URINE LEUK ESTERASE NEGATIVE (NEGATIVE); URINE NITRITE NEGATIVE (NEGATIVE); URINE PROTEIN NEGATIVE (NEGATIVE); URINE UROBILINOGEN 0.2 mg/dL (0.2-1.0); URINE WBC 36 /uL (0-25.8)
[2020-09-27 16:20] LABS: BASO % 0.4 % (0-2.0); EOS % 4.8 % (0-4.5); HEMATOCRIT 39.6 % (32.4-45.2); HEMOGLOBIN 13.3 GM/dL (10.7-15.3); LYMPH % 21.8 % (8-40); MCH 31.7 pg (25.7-33.7); MCHC 33.5 g/dl (32.0-36.0); MEAN CELL VOLUME 94.7 fl (80-96); MEAN PLT VOLUME 8.3 fl (7.5-11.1); MONO % 5.3 % (3.8-10.2); NEUT % 67.7 % (42.8-82.8); PLATELET COUNT 350 K/MM3 (134-434); RBC 4.18 M/mm3 (3.60-5.2); RDW 12.9 % (11.6-15.6); WHITE BLOOD COUNT 12.8 K/mm3 (4.0-10.0)
[2020-09-27 16:49] LABS: POTASSIUM 4.6 mmol/L (3.5-5.1)
[2020-09-27 16:51] LABS: CALCIUM 9.3 mg/dL (8.5-10.1)
[2020-09-27 16:52] LABS: BLOOD UREA NITROGEN 8.8 mg/dL (7-18)
[2020-09-27 16:54] LABS: CREATININE 0.6 mg/dL (0.55-1.3)
[2020-09-27 16:56] LABS: BILIRUBIN,TOTAL 0.3 mg/dL (0.2-1); TOT PROT 7.4 g/dl (6.4-8.2)
[2020-09-27 18:00] LABS: URINE RBC 19.3 /uL (0-23.9)
== END 2020-09-27 17:35 | disposition home or self-care (01) ==
LOC: JER 14:27
PROC: 3E0233Z Introduction of Anti-inflammatory into Muscle, Percutaneous Approach (ICD-10-PCS; principal; 2020-09-27)
DX: R10.9 Unspecified abdominal pain (principal); M54.5 Low back pain
CPT/HCPCS: 36415; 74176-TC; 80053; 81003; 84703; 85025; 87086; 99284-25

== ENCOUNTER 2021-05-02 13:27 | Emergency (ER) | payer BC ==
[2021-05-02 14:37] VITALS: BP 116/70; PULSE 86; TEMP 99.2; BMI 23.5
[2021-05-02] MEDS ORDERED: SODIUM CHLORIDE 0.9% 500 ML INFUS.BAG IV ONE (15:22)
[2021-05-02] MEDS ORDERED: KETOROLAC TROMETHAMINE 30 MG/1 ML VIAL IVPUSH ONE (15:22)
[2021-05-02] MEDS ORDERED: ONDANSETRON 4 MG/2 ML VIAL IVPUSH ONE (15:22)
[2021-05-02] MEDS ORDERED: KETOROLAC TROMETHAMINE 30 MG/1 ML VIAL ONE (16:56)
[2021-05-02] MEDS ORDERED: ONDANSETRON 4 MG/2 ML VIAL ONE (16:56)
[2021-05-02] MEDS ORDERED: ACETAMINOPHEN INJECTION 100 ML IVPB ONE (16:57)
[2021-05-02 16:59] LABS: BASO % 0.7 % (0-2.0); EOS % 5.1 % (0-4.5); HEMATOCRIT 40.2 % (32.4-45.2); HEMOGLOBIN 13.4 GM/dL (10.7-15.3); LYMPH % 31.3 % (8-40); MCH 31.7 pg (25.7-33.7); MCHC 33.4 g/dl (32.0-36.0); MEAN CELL VOLUME 94.8 fl (80-96); MEAN PLT VOLUME 8.4 fl (7.5-11.1); MONO % 5.1 % (3.8-10.2); NEUT % 57.8 % (42.8-82.8); PLATELET COUNT 367 10^3/uL (134-434); RBC 4.24 M/mm3 (3.60-5.2); RDW 12.8 % (11.6-15.6); WHITE BLOOD COUNT 11.5 K/mm3 (4.0-10.0)
[2021-05-02 17:06] LABS: EPI CELLS 9 /uL (0-25.1); HYALINE CASTS 1 /uL (0-3.1); INR 1.05 (0.83-1.09); PH,URINE 5.5 (5.0-8.0); PROTHROMBIN TIME (PATIENT) 12.3 SEC (9.7-13.0); URINE APPEARANCE CLEAR; URINE BACTERIA 739 /uL (0-1359); URINE BILIRUBIN NEGATIVE (NEGATIVE); URINE COLOR YELLOW; URINE GLUCOSE (UA) NEGATIVE (NEGATIVE); URINE KETONE NEGATIVE (NEGATIVE); URINE LEUK ESTERASE NEGATIVE (NEGATIVE); URINE NITRITE NEGATIVE (NEGATIVE); URINE PROTEIN NEGATIVE (NEGATIVE); URINE RBC 24 /uL (0-23.9); URINE UROBILINOGEN 0.2 mg/dL (0.2-1.0); URINE WBC 8 /uL (0-25.8)
[2021-05-02 17:18] LABS: CALCIUM 9.3 mg/dL (8.5-10.1)
[2021-05-02 17:19] LABS: ALBUMIN 4.3 g/dl (3.4-5.0); BLOOD UREA NITROGEN 6.1 mg/dL (7-18)
[2021-05-02 17:22] LABS: CREATININE 0.6 mg/dL (0.55-1.3)
[2021-05-02 17:24] LABS: BILIRUBIN,TOTAL 0.2 mg/dL (0.2-1)
[2021-05-02] MEDS ORDERED: traMADol HCL 50 MG TABLET PO ONE (19:33)
[2021-05-02] MEDS ORDERED: traMADol HCL 50 MG TABLET ONE (19:37)
== END 2021-05-02 19:30 | disposition home or self-care (01) ==
LOC: JER 13:27
PROC: 3E0333Z Introduction of Anti-inflammatory into Peripheral Vein, Percutaneous Approach (ICD-10-PCS; principal; 2021-05-02)
PROC: 3E033GC Introduction of Other Therapeutic Substance into Peripheral Vein, Percutaneous Approach (ICD-10-PCS; 2021-05-02)
DX: K57.92 Diverticulitis of intestine, part unspecified, without perforation or abscess without bleeding (principal)
CPT/HCPCS: 36415; 74176-TC; 80053; 81003; 84703; 85025; 85610; 87086; 99284-25